=== PATIENT | male | born 1955 | race African-American/Black ===

== ENCOUNTER 2016-12-24 16:41 | Emergency (ER) | payer MEDICARE ==
[2014-05-21 00:40] VITALS: BMI 30.9
[~2016-12-24 16:41] MED LIST: CELLCEPT500 MG PO; COMBIVENT RESPIM4 GM INH; HUMALOG 30100 UNITS/ SC; HUMULIN R100 U/ML SC; HYDROCODONE-APA1 TAB PO; INSTA-GLUCOSE31 GM; INSTA-GLUCOSE31 GM PO; IPRAT-ALBUT 0.5-3 ML UPD; LANTUS SOL100 UNIT/1 SQ; MUCINEX600 MG PO; NEURONTIN600 MG PO; NORVASC5 MG PO; PROGRAF0.5 MG PO; PROTONIX40 MG PO; RESTORIL15 MG PO; VITAMIN B-12500 MCG PO
[2016-12-24 18:02] LABS: BASOPHILS 0.2 % (0.0-2.0); EOSINOPHILS 3.9 % (0-7); HEMOGLOBIN 15.2 g/dL (13.5-17.5); IMMATURE GRANULOCYTES 0.2 % (0-5); LYMPHOCYTES 21.9 % (15-50); MCH 30.3 pg (26.0-34.0); MCHC 33.8 g/dL (31.0-37.0); MCV 89.6 fL (80.0-100.0); MEAN PLATELET VOLUME 12.6 fL (7.4-10.4); MONOCYTES 7.8 % (2-11); PLATELET COUNT 173 10x3/uL (130-400); RBC 5.02 10x6/uL (4.20-6.10); RDW 12.8 % (11.5-14.5); WBC 6.5 10x3/uL (4.8-10.8)
[2016-12-24 18:40] LABS: ALBUMIN 3.3 g/dL (3.4-5.0); ANION GAP 13.9 mmol/L (8-16); BILIRUBIN - TOTAL 0.22 mg/dL (0.2-1.3); CALCIUM 9.1 mg/dL (8.5-10.1); CARBON DIOXIDE 26.8 mmol/L (21.0-32.0); CREATININE - SERUM 1.7 mg/dL (0.6-1.3); POTASSIUM - SERUM 4.7 mmol/L (3.5-5.1); PROTEIN - SERUM 6.8 g/dL (6.4-8.2)
[2016-12-24 18:42] LABS: URIC ACID 7.7 mg/dL (2.6-7.2)
== END 2016-12-24 19:26 | disposition home or self-care (01) ==
LOC: D.ER 16:41
PROVIDERS: Nurse Practitioner Family
DX: M79.601 Pain in right arm (principal); F17.200 Nicotine dependence, unspecified, uncomplicated; M48.32 Traumatic spondylopathy, cervical region; M54.12 Radiculopathy, cervical region; E11.9 Type 2 diabetes mellitus without complications; Z79.4 Long term (current) use of insulin; Z94.0 Kidney transplant status

== ENCOUNTER → 2017-01-28 08:21 | Outpatient (CLI) | payer MEDICARE ==
[2014-05-21 00:40] VITALS: BMI 30.9
--- NOTE | 2017-02-12 08:22 | EMG ---
PATIENT:FERNIE SO DATE OF SERVICE: 01/28/17 MEDICAL RECORD: [id number] DATE OF : 57 LOCATION: [facility] ADMISSION DATE: REFERRING PHYSICIAN: ZEV SARAH MD INTERPRETING PHYSICIAN: ANUPAM MARTINEZ MD DATE OF SERVICE: 01/28/2017 REFERRED BY: Zev Sarah MD. ELECTROMYOGRAPHIC DATA: Electromyographic examination is limited to both upper extremities. In the right upper extremity, right median motor stimulation elicits a compound motor action potential with a distal latency of 3.1 milliseconds, peak amplitude of 5 millivolts, and calculated conduction velocity of 51 meters per second. Right ulnar motor stimulation elicits a compound motor action potential with a distal latency of 2.6 milliseconds, peak amplitude of 9 millivolts, and calculated conduction velocity of 57 meters per second. Right ulnar motor stimulation across the elbow fails to elicit evidence of conduction block at this level. Antidromic right median sensory stimulation elicits a response with a distal latency of 3.2 milliseconds, amplitude of 6 microvolts and calculated conduction velocity of 58 meters per second. Antidromic right ulnar sensory stimulation elicits a response with a distal latency of 3.2 milliseconds, amplitude of 10 microvolts and calculated conduction velocity of 58 meters per second. The right median F wave has a latency of 28 milliseconds. In the left upper extremity, left median motor stimulation elicits a compound motor action potential with a distal latency of 3.7 milliseconds, peak amplitude of 7 millivolts, and calculated conduction velocity of 53 meters per second. Left ulnar motor stimulation elicits a compound motor action potential with a distal latency of 2.8 milliseconds, peak amplitude of 7 millivolts, and calculated conduction velocity of 55 meters per second. Left ulnar motor stimulation across the elbow fails to elicit evidence of conduction block at this level. Antidromic left median sensory stimulation elicits a response with a distal latency of 3.2 milliseconds, amplitude of 7 microvolts and calculated conduction velocity of 51 meters per second. Antidromic left ulnar sensory stimulation elicits a response with a distal latency of 4.5 milliseconds, amplitude of 5 microvolts and calculated conduction velocity of 57 meters per second. The left median F wave has a latency of 28 milliseconds. Needle electrode examination is limited to both upper extremities as well. Muscles interrogated include the abductor pollicis brevis, first dorsal interosseous, abductor digiti minimi, pronator teres, biceps brachii, triceps and deltoid. There is no abnormality of insertional activity and no abnormal spontaneous activity is seen in all muscles interrogated. Motor unit potential morphology and the pattern of motor unit potential firing and recruitment is normal in all muscles sampled. INTERPRETATION: Electromyographic examination of both upper extremities is normal. There is no electrical evidence of a cervical radiculopathy or other lesion of the lower motor neuron in the upper extremities at this time. There is no evidence of active denervation. TRANSINT:[id number] Voice Confirmation ID: [id number] DOCUMENT ID: [id number] ELECTROMYGRAM/NERVE CONDUCTION [id number] FERNIE SO DONALD P MD at 0822 CC: [id number] DICTATION DATE: 01/28/17928 SENIOR UNDERWRITING ASSISTANT: 01/28/172131 DEP CLI 01/28/17 [address] [place] [address]
== END | disposition home or self-care (01) ==
LOC: D.CN 08:21
DX: M79.601 Pain in right arm (principal)

== ENCOUNTER 2017-04-15 10:57 | Inpatient (IN) | payer MEDICARE ==
[~2017-04-15] VITALS: Ht 162.6 cm; Wt 86.1 kg
--- NOTE | ~2017-04-15 | HEMODYNAMI ---
PATIENT:FERNIE SO MEDICAL RECORD: [id number] : 57 [address] [id number] ADMISSION DATE: 04/15/17 Generatedon:04/16/201713:40 Patient name: FERNIE SO Patient #: [id number] : 1955 Date of study: 04/16/2017 Page: Of Hemodynamic Procedure Report Patient Data Patient Demographics Procedure consent was obtained First Name: FERNIE Gender: Male Last Name: UJDAH : 1955 Patient #: [id number] Age: 61 year(s) Race: Black SSN: [id number] Additional ID: [id number] Contact details Address: [address] [place] [address] State: [place] City: [place] Zip code: [address] Past Medical History Allergies Allergen Reaction Date Comments Reported Other allergy 04/16/2017 Acetametaphin, Ibuprofen, rosuvastatin, codeine, Phosphate Admission Admission Data Admission Date: 04/15/2017 Admission Time: 13:12 Arrival Date: 04/15/2017 Arrival Time: 13:12 Admit Source: Other Insurance Payor: Medicare, Room #: .[address] [place] [address] Height (in.): 64 BSA: 1.89 (m2) Height (cm.): 162.56 BMI: 31.75 (kg/m2) Weight (lbs.): 185 Weight (kg.): 83.91 Lab Results Lab Result Date: 04/16/2017 Lab Result Time: 0:00 Biochemistry Name Units Result Min Max BUN mg/dl 23 --(----)-* 7 18 Creatinine mg/dl 1.7 --(----)-* 0.6 1.3 CBC Name Units Result Min Max Hemoglobin g/dl 16.2 --(--*-)-- 13.5 17.5 Procedure Procedure Types Cath Procedure Diagnostic Procedure C LH w/Coronaries Miscellaneous Procedures Moderate Sedation up to 45 minutes Procedure Description Procedure Date Procedure Date: 04/16/2017 Procedure Start Time: 13:15 Procedure End Time: 13:35 Procedure Staff Name Function Ramiro Mejía MD Performing Physician Natalia Pemberton RT Scrub Annabel Sprague RN Nurse Mini Matias RT Monitor Procedure Data Cath Procedure Fluoroscopy Diagnostic fluoroscopy Total fluoroscopy Time: 6.2 time: 6.2 min min Diagnostic fluoroscopy Total fluoroscopy dose: 938 dose: 938 mGy mGy Contrast Material Contrast Material Type Amount (ml) Isovue 370 75 Entry Location Entry Primary Successful Side Size Upsize Upsize Entry Closure Succes sful Closure Location (Fr) 1 (Fr) 2 (Fr) Remarks Device Remarks Femoral Right 5 Fr Exoseal artery Estimated blood loss: 5 ml Diagnostic catheters Device Type Used For End Catheter Placement Cordis 5Fr JL 4.0 Left Coronary Catheter (MP) Angiography Cordis 5Fr 3DRC Catheter Right Coronary (MP) Angiography Diagnostic Infinity 5Fr Right Coronary JR 4 catheter Angiography Cordis 5Fr Pigtail LV Angiography Catheter (MP) Procedure Complications No complications Procedure Medications Medication Administration Route Dosage Oxygen NC 2 l/min Lidocaine 2% added to field 20 Heparin Flush Bag added to field 2 bags (1000units/500ml NS) 0.9% NaCl I.V. 100 ml/hr Versed I.V. 1 mg Fentanyl I.V. 50 mcg Versed I.V. 0.5 mg Fentanyl I.V. 25 mcg Hemodynamics Rest BSA: 1.89 (m2) HGB: 16.2 (g/dl) O2 Consumption: Estimated: 226.87 (ml/min) O2 Co nsumption indexed: Estimated:120.04 (ml/min/m) Heart Rate: 77 (bpm) Pressure Samples Time Site Value (mmHg) Purpose Heart Use Rate(bpm) 13:31 LV 118/-2,12 Snapshot 82 Gradients Valve Time Site Site Mean SEP/DFP Peak To Heart Use 1 2 (mmHg) (sec/min) Peak Rate (mmHg) (bpm) Aortic 13:32 LV AO 82 Snapshots Pre Cath Intra NCS Post Cath Vital Signs Time Heart Resp SPO2 NIBP (mmHg) Rhythm Pain Sedation Rate (ipm) (%) Status Level (bpm) 12:58:28 78 20 100 142/109(137) NSR 0 (11) 10(A) , No pain 13:02:44 80 17 95 144/104(113) NSR 0 (11) 10(A) , No pain 13:07:00 77 17 96 142/85(112) NSR 0 (11) 10(A) , No pain 13:11:18 77 16 94 128/87(117) NSR 0 (11) 9(A) , No pain 13:15:28 78 19 97 148/92(126) NSR 0 (11) 9(A) , No pain 13:19:40 79 21 95 140/96(120) NSR 0 (11) 9(A) , No pain 13:23:48 81 18 96 136/95(124) NSR 0 (11) 9(A) , No pain 13:27:58 83 18 96 147/89(116) NSR 0 (11) 9(A) , No pain 13:32:13 82 14 94 139/84(105) NSR 0 (11) 10(A) , No pain Medications Time Medication Route Dose Verified Delivered Reason Notes Effec tiveness by by 13:02:25 Oxygen NC 2 Ramiro Buffie used for l/min [facility] Andrew Sprague RN procedure 13:02:32 Lidocaine 2% added 20ml Ramiro Buffie used for to vial [facility] Andrew Sprague RN procedure field [place] 13:02:39 Heparin Flush added 2 Ramiro Buffie used for Bag to bags [facility] Andrew Sprague RN procedure (1000units/500ml field [place] NS) 13:06:16 0.9% NaCl I.V. 100 Ramiro Buffie Per ml/hr [facility] Andrew Sprague RN physician 13:06:31 Versed I.V. 1 mg Ramiro Buffie for [facility] Andrew Sprague RN sedation 13:06:37 Fentanyl I.V. 50 Ramiro Buff[address] for mcg [facility] Andrew Sprague RN sedation 13:20:10 Versed I.V. 0.5 Ramiro Buff[address] for mg [facility] Andrew Sprague RN sedation 13:20:14 Fentanyl I.V. 25 Ramiro Buffie for mcg [facility] Andrew Sprague RN sedation Procedure Log Time Note 12:21:06 Informed consent obtained and on chart 12:21:17 Admit Source: Other 12:21:24 Arrival Date: 04/15/2017 1:12:00 PM 12:21:42 Insurance Payor : Medicare, [facility] 12:22:44 Lab Result : Hemoglobin 16.2 g/dl 12::44 Lab Result : Creatinine 1.7 mg/dl 12::44 Lab Result : BUN 23 mg/dl 12:24:28 Annabel Sprague RN sent for patient. Start room use. 12::29 Time tracking: Regular hours 12:24:33 Plan of Care:Hemodynamics will remain stable., Cardiac rhythm will remain stable., Comfort level will be maintained., Respiratory function will remain adequate., Patient/ family verbilizes understanding of procedure., Procedure tolerated without complication., Recovers from procedure without complications.. 12:45:55 Patient received from Med II to CCL 2 Alert and oriented. Tansferred to table in Supine position. 12:45:56 Warm blankets applied, and micheal hugger turned on for patient comfort. 12:45:56 Correct patient and procedure confirmed by team. 12:46:01 ECG and BP/O2 sat monitors applied to patient. 12:57:17 Vital chart was started 12:57:18 Baseline sample Acquired. 12:57:23 Rhythm: sinus rhythm 12:57:24 Full Disclosure recording started 12:57:29 H&P Date Dictated: 04/16/2017 New H&P dictated by physician.. 12:57:31 Pre-op teaching completed and patient verbalized understanding. 12:57:32 Pre-procedure instructions explained to patient. 12:57:37 Family in waiting room. 12:57:38 Patient NPO since Midnight. 12:58:13 Patient allergic to Other allergyAcetametaphin, Ibuprofen, rosuvastatin, codeine, Phosphate 12:58:22 Is the patient allergic to Iodine/contrast media? No. 12:58:24 Was the patient premedicated? No 12:59:34 Is patient on blood thinner?No 12:59:35 Patient diabetic? Yes. 12:59:37 If diabetic: On Metformin? No 12:59:40 Previous problem with sedation/anesthesia? No ? 12:59:42 Snore? Yes 12:59:42 Sleep apnea? Yes 12:59:44 Deviated septum? No 12:59:44 Opens mouth fully? Yes 12:59:45 Sticks out tongue? Yes 12:59:55 Airway obstruction? Yes copd 12:59:58 Dentures? Yes in tight 13:00:03 Pre procedure: right dorsailis pedis pulse 1+ Palpable, but thready & weak; easily obliterated 13:00:05 Patient pain scale 0/10 ?. 13:00:13 IV patent on arrival in right antecubital with 0.9% NaCl at [facility]. 13:00:17 Lab results completed and on chart. 13:00:25 Right groin area was prepped with chlora-prep and draped in sterile fashion 13:00:26 Alarms reviewed by R. N. 13:00:27 Sharps counted by scrub and verified by R.N. 13:00:46 Physician arrived 13:00:46 --------ALL STOP TIME OUT------ 13:00:47 Final Timeout: patient, procedure, and site verified with staff and physician. All members of the team are in agreement. 13:00:49 Right groin site verified by team. 13:00:52 Physical assessment completed. ASA score P 3 - A patient with severe systemic disease as per Ramiro Mejía MD. 13:00:56 Sedation plan: IV Moderate Sedation Versed, Fentanyl 13:01:05 Use device set Femoral Dx 13:01:06 Acist Syringe opened to sterile field. 13:01:06 Bag Decanter opened to sterile field. 13:01:07 Medline Cath Pack opened to sterile field. 13:01:08 Terumo 5Fr [place] Sheath opened to sterile field. 13:01:08 St Charanjit 260cm J .035 wire opened to sterile field. 13:01:10 Acist Hand Control opened to sterile field. 13:01:10 Acist Manifold opened to sterile field. 13:01:11 Diagnostic Infinity 5Fr Multipack catheter opened to sterile field. 13:01:12 Tegaderm 4 x 4 opened to sterile field. 13:02:25 Oxygen 2 l/min NC was administered by Annabel Sprague RN; used for procedure; 13:02:32 Lidocaine 2% 20ml vial added to field was administered by Annabel Sprague RN; used for procedure; 13:02:39 Heparin Flush Bag (1000units/500ml NS) 2 bags added to field was administered by Annabel Sprague RN; used for procedure; 13:06:16 0.9% NaCl 100 ml/hr I.V. was administered by Annabel Sprague RN; Per physician; 13:06:31 Versed 1 mg I.V. was administered by Annabel Sprague RN; for sedation; 13:06:37 Fentanyl 50 mcg I.V. was administered by Annabel Sprague RN; for sedation; 13:06:37 Zero performed for pressure channel P1 13:15:25 Procedure started. 13:15:35 Local anesthetic to right femoral artery with Lidocaine 2% by Ramiro Mejía MD.INITIAL ACCESS ONLY 13:15:42 A 5 Fr sheath was inserted into the Right Femoral artery 13:16:50 A Cordis 5Fr JL 4.0 Catheter (MP) was advanced over the wire and used for Left Coronary Angiography. 13:18:33 LCA angiography performed. 13:18:36 Injector settings: Ml/sec: 3, Volume: 6, 13:19:53 Catheter removed. 13:19:59 A Cordis 5Fr 3DRC Catheter (MP) was advanced over the wire and used for Right Coronary Angiography. 13:20:10 Versed 0.5 mg I.V. was administered by Annabel Sprague RN; for sedation; 13:20:14 Fentanyl 25 mcg I.V. was administered by Annabel Sprague RN; for sedation; 13:23:38 Wire removed. damaged. 13:23:43 St Charanjit 260cm J .035 wire opened to sterile field. 13:27:06 A Diagnostic Infinity 5Fr JR 4 catheter was advanced over the wire and used for Right Coronary Angiography. 13:28:02 RCA angiography performed. 13:28:06 Injector settings: Ml/sec: 3, Volume: 6, 13:29:04 Catheter removed. 13:29:15 A Cordis 5Fr Pigtail Catheter (MP) was advanced over the wire and used for LV Angiography. 13:32:13 LV hemodynamics recorded. 13:32:18 EF : 60 % 13:32:20 LV gram done using ANTHONY 13:32:23 Injector settings: Ml/sec: 5, Volume: 15, 13:32:24 Catheter removed. 13:33:27 Cordis 5Fr Exoseal opened to sterile field. 13:33:45 Sheath removed intact; hemostasis achieved with Exoseal to the Right Femoral artery. 13:33:48 Procedure ended.(Physican Out) 13:33:58 Fluoroscopy time 06.20 minutes. 13:34:13 Fluoroscopy dose: 938 mGy 13:34:13 Flurop Dose total: 938 13:34:17 Contrast amount:Isovue 370 75ml. 13:34:23 Sharps counted by scrub and verified by R.N. 13:34:24 Insertion/operative site no bleeding no hematoma. 13:34:27 Post-op/insertion site Right Femoral artery dressed using a 4 x 4 and Tegaderm. 13:34:30 Post right femoral artery:stable 13:34:35 Post procedure rhythm: unchanged. 13:34:38 Estimated blood loss: 5 ml 13:34:39 Post procedure instruction explained to patient.Patient verbalizes understanding. 13:34:40 Patient needs reinforcement of post procedure teaching. 13:34:54 Procedure type changed to Cath procedure, Diagnostic procedure, LHC, LHC w/Coronaries, Miscellaneous Procedures, Moderate Sedation up to 45 minutes 13:35:07 Procedure and supply charges have been captured, reviewed, submitted and are correct. 13:35:12 Procedure Complication : No complications 13:35:13 Vital chart was stopped 13:35:14 See physician's report for complete and final results. 13:35:15 Report given to [facility]. 13:35:26 Patient transfered to [facility] with Stretcher. 13:35:30 Procedure ended. 13:35:30 Full Disclosure recording stopped 13:36:00 End room use (Document Last) 13:36:44 Patient Height : 162.56 cm 13:36:49 Patient Weight : 83.91 kg Device Usage Item Name Manufacture Quantity Catalog Hospital Part Current Minimal Lo t# / Number Charge Number Stock Stock Serial# Code Acist Acist 1 92852 525039 123833 [id number] 20 Syringe Medical [employer] Inc Bag Microtek 1 2002S 405397 37006 805365 5 Decanter Medical Inc. Medline Cardinal 1 [id number] 954610 92872 905963 5 Cath Pack [employer] Terumo 5Fr Terumo 1 OBU941 877518 234028 127306 [address] [place] [address] Charanjit 2 062341 382745 299788 822163 30 260cm J .035 wire Acist Hand Acist 1 00318 663091 060615 985679 5 Control Medical Systems Inc Acist Acist 1 80239 131282 222961 401958 5 Manifold Medical Systems Inc Diagnostic Cardinal 1 [id number] 338768 85554 935434 30 Shadow Networksity Health 5Fr Multipack catheter Tegaderm 4 3M 1 1626W 289918 598670 236743 5 x 4 Cordis 5Fr Cardinal 1 013306 5 JL 4.0 Health Catheter (MP) Cordis 5Fr Cardinal 1 804891 5 3DRC Health Catheter (MP) Diagnostic Cardinal 1 [id number] 597213 496120 623635 5 Infinity Health 5Fr JR 4 catheter Cordis 5Fr Cardinal 1 920464 5 Pigtail Health Catheter (MP) Cordis 5Fr Cardinal 1 EX500 014569 804445 846386 10 [place] Signature Audit [place] Stage Time Signature Unsigned Intra-Procedure 04/16/2017 Mini Matias 1:40:24 PM RT(R) Signatures Monitor : Mini Matias RT Signature : Date : Time : [address] [place] [address]
[2017-04-15 11:26] LABS: BASOPHILS 0.2 % (0-2); EOSINOPHILS 3.2 % (0-7); HEMATOCRIT 47.5 % (42.0-54.0); IMMATURE GRANULOCYTES 0.4 % (0-5); LYMPHOCYTES 16.6 % (15-50); MCHC 33.7 g/dL (31.0-37.0); MEAN PLATELET VOLUME 11.8 fL (7.4-10.4); MONOCYTES 9.7 % (2-11); NEUTROPHILS 69.9 % (40-80); PLATELET COUNT 150 10x3/uL (130-400); RBC 5.34 10x6/uL (4.20-6.10); RDW 12.6 % (11.5-14.5); WBC 5.7 10x3/uL (4.8-10.8)
[2017-04-15 11:40] LABS: ALBUMIN 3.2 g/dL (3.4-5.0); ALKALINE PHOSPHATASE 113 U/L (46-116); ALT (SGPT) 34 U/L (10-68); BILIRUBIN - TOTAL 0.49 mg/dL (0.2-1.3); CALC OSMOLALITY 282 mosm/kg (275-300); CALCIUM 9.2 mg/dL (8.5-10.1); CARBON DIOXIDE 27.9 mmol/L (21.0-32.0); CHLORIDE - SERUM 102 mmol/L (98-107); CREATININE - SERUM 1.6 mg/dL (0.6-1.3); POTASSIUM - SERUM 4.9 mmol/L (3.5-5.1); PROTEIN - SERUM 7.4 g/dL (6.4-8.2); SODIUM 137 mmol/L (136-145); UREA NITROGEN 20 mg/dL (7-18); eGFR NON AFRICAN AMERICAN 47 mL/min (90-120)
[2017-04-15 11:44] LABS: GLUCOSE 211 mg/dL (74-106)
[2017-04-15 11:52] LABS: CHOL - HDL RATIO 2.8 ratio (2.3-4.9); CHOLESTEROL, TOTAL 163 mg/dL (0-200); CKMB 1.8 U/L (0.0-3.6); CREATINE KINASE 143 UL (21-232); HDL CHOLESTEROL 58 mg/dL (32-96); LDL CHOLESTEROL 83 mg/dL (0-100); LDL-HDL RATIO 1.4 ratio (1.5-3.5); TRIGLYCERIDE 114 mg/dL (30-200)
[2017-04-15 11:53] LABS: TROPONIN-I < 0.017 ng/mL (0.000-0.060)
--- NOTE | 2017-04-15 17:27 | NUR ---
TRANSFER FROM ER BY STRETCHER. OREINTED TO ROOM. CALL LIGHT IN REACH. WILL CONT. PLAN OF CARE.
[2017-04-15 17:50] VITALS: BP 157/94
[2017-04-15] MEDS ORDERED: LANTUS INSULIN10 ML SC (17:52)
[2017-04-15] MEDS ORDERED: TACROLIMUS ANHYD1 MG PO (17:53)
[2017-04-15] MEDS ORDERED: HYDROCODON-ACE1 EAC7 PO (17:53)
[2017-04-15] MEDS ORDERED: CELLCEPT500 MG PO (17:54)
[2017-04-15] MEDS ORDERED: NEURONTIN600 MG PO (17:54)
[2017-04-15] MEDS ORDERED: NORVASC5 MG PO (17:55)
[2017-04-15] MEDS ORDERED: PROTONIX40 MG PO (17:55)
[2017-04-15 18:15] VITALS: BP 157/94; BMI 32.7
[2017-04-15 21:07] VITALS: BP 158/95
[2017-04-16 01:38] VITALS: BP 143/82
[2017-04-16 04:38] LABS: BASOPHILS 0 % (0-2); EOSINOPHILS 4.1 % (0-7); HEMATOCRIT 48.4 % (42.0-54.0); HEMOGLOBIN 16.2 g/dL (13.5-17.5); IMMATURE GRANULOCYTES 0.3 % (0-5); LYMPHOCYTES 23.3 % (15-50); MCH 30.3 pg (26.0-34.0); MCHC 33.5 g/dL (31.0-37.0); MCV 90.5 fL (80.0-100.0); MEAN PLATELET VOLUME 12.6 fL (7.4-10.4); MONOCYTES 8.9 % (2-11); NEUTROPHILS 63.4 % (40-80); PLATELET COUNT 179 10x3/uL (130-400); RBC 5.35 10x6/uL (4.20-6.10); RDW 12.7 % (11.5-14.5)
[2017-04-16 05:32] VITALS: BP 140/86
[2017-04-16 05:33] LABS: CARBON DIOXIDE 29.6 mmol/L (21.0-32.0); CHLORIDE - SERUM 102 mmol/L (98-107); CREATININE - SERUM 1.7 mg/dL (0.6-1.3); POTASSIUM - SERUM 5.3 mmol/L (3.5-5.1); SODIUM 138 mmol/L (136-145); UREA NITROGEN 23 mg/dL (7-18); eGFR NON AFRICAN AMERICAN 44 mL/min (90-120)
[2017-04-16 05:38] LABS: CALC OSMOLALITY 282 mosm/kg (275-300); GLUCOSE 147 mg/dL (74-106); TROPONIN-I < 0.017 ng/mL (0.000-0.060)
[2017-04-16 08:00] VITALS: BP 146/82
[2017-04-16 12:00] VITALS: BP 143/86
--- NOTE | 2017-04-16 12:43 | NUR ---
PRE-OPS GIVEN. TO APPEALS WRITER BY BED.
--- NOTE | 2017-04-16 14:01 | NUR ---
BACK FROM DRAINAGE INSPECTOR. VS WNL. RIGHT GROIN STABLE WITHOUT BLEEDING OR HEMATOMA NOTED. WILL MONITOR.
[2017-04-16 15:26] VITALS: Ht 162.6 cm; Wt 86.1 kg
[2017-04-16 15:59] VITALS: BP 149/95
--- NOTE | 2017-04-16 16:03 | NUR ---
BED REST UP. GROIN STABLE.
--- NOTE | 2017-04-16 19:56 | NUR ---
RESUMED CARE OF PT, LYING IN BED RESPIRATIONS EVEN AND UNLABORED ON ROOM AIR. RIGHT HAND INFUSING NS @ 50. 81 SR ON TELEMETRY. RIGHT GROIN C/D/I, PEDAL PULSE PALPABLE. CALL LIGHT IN REACH. WILL CONTINUE OT MONITOR. SEE NURSE ASSESSMENT.
[2017-04-16 20:44] VITALS: BP 143/82
[2017-04-17 03:47] VITALS: BP 125/76
[2017-04-17 05:40] LABS: BASOPHILS 0.1 % (0-2); EOSINOPHILS 0.3 % (0-7); HEMATOCRIT 46.1 % (42.0-54.0); HEMOGLOBIN 15.2 g/dL (13.5-17.5); IMMATURE GRANULOCYTES 0.7 % (0-5); LYMPHOCYTES 8.2 % (15-50); MCH 29.9 pg (26.0-34.0); MCV 90.7 fL (80.0-100.0); MEAN PLATELET VOLUME 12.4 fL (7.4-10.4); MONOCYTES 4.5 % (2-11); NEUTROPHILS 86.2 % (40-80); PLATELET COUNT 167 10x3/uL (130-400); RBC 5.08 10x6/uL (4.20-6.10); RDW 12.5 % (11.5-14.5); WBC 7.3 10x3/uL (4.8-10.8)
[2017-04-17 06:28] LABS: ALBUMIN 2.7 g/dL (3.4-5.0); ANION GAP 13.8 mmol/L (8-16); BILIRUBIN - TOTAL 0.3 mg/dL (0.2-1.3); CALCIUM 8.3 mg/dL (8.5-10.1); CARBON DIOXIDE 24.4 mmol/L (21.0-32.0); CREATININE - SERUM 1.8 mg/dL (0.6-1.3); MAGNESIUM - SERUM 1.3 mg/dL (1.8-2.4); PHOSPHOROUS 3.8 mg/dL (2.5-4.9); POTASSIUM - SERUM 5.2 mmol/L (3.5-5.1); PROTEIN - SERUM 6.6 g/dL (6.4-8.2)
--- NOTE | 2017-04-17 07:58 | OP ---
PATIENT NAME: FERNIE SO MEDICAL RECORD: [id number] :57 LOCATION:D.M2 D.2120 ADMISSION DATE:04/15/17 SURGEON: AMITA SHARMA MD DATE OF OPERATION: 04/16/2017 PROCEDURES: Left heart catheterization, selective coronary angiography, right femoral artery approach. CATHETERS: A 5-Faroese sheath, 5/4 left and right Jerman, 5/4 pig. The procedure was well tolerated and the patient returned to bruner. Sheath removed. ExoSeal device was placed. FINDINGS: Left ventriculography in 30-degree ANTHONY view: Normal wall motion, normal systolic function. CORONARY ANATOMY: Left main: Left main is free of disease. LAD: LAD has no significant plaquing, some bridging is noted in the mid portion of the LAD consistent with LVH. CIRCUMFLEX: Circumflex is free of disease. RIGHT CORONARY ARTERY: Shows luminal wall disease with no significant stenosis. IMPRESSION: Minimal wall disease, no significant stenosis. Normal LV function. TRANSINT:[id number] Voice Confirmation ID: [id number] DOCUMENT ID: [id number] AMITA SHARMA MD at 0758 CC: [id number] DICTATION DATE: 04/16/17 1343 RESTAURANT FLOOR MANAGER: 04/17/17 0034 ADM IN [facility] [address] [place] [address]
[2017-04-17 08:41] VITALS: BP 151/77
--- NOTE | 2017-04-17 10:42 | NUR ---
FSBS 54. 1/2 AMP DEXTROSE GIVEN. WILL MONITOR.
[2017-04-17 12:54] VITALS: BP 154/76
[2017-04-17 16:20] VITALS: BP 146/74
[2017-04-17 19:00] VITALS: BP 150/82
[2017-04-18] VITALS: BP 166/80
[2017-04-18 04:00] VITALS: BP 148/75
[2017-04-18 06:09] LABS: ANION GAP 12.4 mmol/L (8-16); CALCIUM 8.6 mg/dL (8.5-10.1); CREATININE - SERUM 1.6 mg/dL (0.6-1.3)
[2017-04-18 06:16] LABS: HEMATOCRIT 44.6 % (42.0-54.0); HEMOGLOBIN 14.9 g/dL (13.5-17.5); LYMPHOCYTES 14.5 % (15-50); MCH 29.3 pg (26.0-34.0); MCHC 33.4 g/dL (31.0-37.0); MEAN PLATELET VOLUME 11.5 fL (7.4-10.4); NEUTROPHILS 73.8 % (40-80); PLATELET COUNT 149 10x3/uL (130-400); POTASSIUM - SERUM 4.4 mmol/L (3.5-5.1); RBC 5.08 10x6/uL (4.20-6.10); RDW 12.6 % (11.5-14.5); WBC 6.2 10x3/uL (4.8-10.8)
[2017-04-18 06:17] LABS: MCV 87.8 fL (80.0-100.0)
--- NOTE | 2017-04-18 06:20 | NUR ---
PT SOMNOLENT. GLUCOSE ON LABS THIS AM RESULTS 50. 1/2 AMP D50 GIVEN. WILL MONITOR
[2017-04-18 08:12] VITALS: BP 150/88
[2017-04-18 12:14] VITALS: BP 164/92
[2017-04-18 15:43] VITALS: BP 161/88
[2017-04-18 20:00] VITALS: BP 162/79
--- NOTE | 2017-04-18 21:33 | NUR ---
PT REFUSES BRINDA DEVI. STATES HE HAS BEEN HYPOGLYCEMIC LATELY. GLUCOSE 128 VIA ACCU-CHECK. WILL COMPLY WITH PT'S REQUEST. PT ALSO C/O PAIN TO CHEST AND BACK. BUPRENEX 0.15 IV GIVEN WITH ZOFRAN 4 MG IV. PT STATES BREATHING TREATMENT HAS MADE HIM NAUSEATED. WILL CONT TO MONITOR.
[2017-04-19] VITALS: BP 156/86
[2017-04-19 04:00] VITALS: BP 145/75
[2017-04-19 05:37] LABS: BASOPHILS 0.2 % (0-2); EOSINOPHILS 2.5 % (0-7); HEMOGLOBIN 14.9 g/dL (13.5-17.5); IMMATURE GRANULOCYTES 0.5 % (0-5); LYMPHOCYTES 20.4 % (15-50); MCH 29.9 pg (26.0-34.0); MCHC 33.1 g/dL (31.0-37.0); MEAN PLATELET VOLUME 11.8 fL (7.4-10.4); MONOCYTES 11.1 % (2-11); NEUTROPHILS 65.3 % (40-80); PLATELET COUNT 166 10x3/uL (130-400); RBC 4.99 10x6/uL (4.20-6.10); RDW 12.7 % (11.5-14.5); WBC 5.6 10x3/uL (4.8-10.8)
[2017-04-19 05:38] LABS: MCV 90.2 fL (80.0-100.0)
[2017-04-19 06:03] LABS: ANION GAP 10.7 mmol/L (8-16); CALCIUM 8.8 mg/dL (8.5-10.1); CREATININE - SERUM 1.6 mg/dL (0.6-1.3); POTASSIUM - SERUM 4.7 mmol/L (3.5-5.1)
--- NOTE | 2017-04-19 07:56 | NUR ---
ASSESSMENT DONE DENIES NEEDS.
[2017-04-19 08:00] VITALS: BP 143/71
--- NOTE | 2017-04-19 08:16 | NUR ---
RESTS IN BED WITH CALL LIGHT IN REACH. WILL MONITOR NEEDS.
[2017-04-19] MEDS ORDERED: CARAFATE1 G PO (10:30)
[2017-04-19] MEDS ORDERED: OMEPRAZOLE20 M1 PO (10:31)
--- NOTE | 2017-04-19 10:38 | DS ---
PATIENT:FERNIE SO :57 MEDICAL RECORD: [id number] DISCHARGE SUMMARY ADMISSION DATE: 04/17/17 DISCHARGE DATE: PROBLEM LIST: 1. Chest pain. 2. Diabetes mellitus. 3. Chronic renal insufficiency, status post transplantation. 4. Hypertension. BRIEF HISTORY AND HOSPITAL COURSE: Admitted with acute coronary syndrome underwent diagnostic angiography. This showed no evidence of obstructive coronary artery disease, normal LV function, was seen by renal preoperatively, discharged home in good condition. Follow up will be at renal at their discretion. I will see him back as needed. MEDICATIONS: Including ____ medications the same. TRANSINT:[id number] Voice Confirmation ID: [id number] DOCUMENT ID: [id number] AMTIA SHARMA MD at 1038 CC: [id number] DICTATION DATE: 04/18/17817 STRUCTURAL IRON ERECTOR: 04/19/17 0509 ADM IN [facility] [address] [id number]
[2017-04-19 12:00] VITALS: BP 139/77
--- NOTE | 2017-04-19 15:33 | NUR ---
DC GIVEN TO PT
--- NOTE | 2017-04-19 15:50 | NUR ---
DC HOME PER PERSONAL CAR
== END 2017-04-19 15:51 | disposition home or self-care (01) | DRG 287 ==
LOC: D.ER 10:57 → D.M2 13:12 → OBSVTIME 13:12 → D.M2 04-17 14:29
PROVIDERS: Emergency Medicine; Internal Medicine; ADMIT Internal Medicine Interventional Cardiology
PROC: B2151ZZ Fluoroscopy of Left Heart using Low Osmolar Contrast (ICD-10-PCS; principal; 2017-04-16 08:30)
PROC: 4A023N7 Measurement of Cardiac Sampling and Pressure, Left Heart, Percutaneous Approach (ICD-10-PCS; principal; 2017-04-16 08:30)
PROC: B2111ZZ Fluoroscopy of Multiple Coronary Arteries using Low Osmolar Contrast (ICD-10-PCS; principal; 2017-04-16 08:30)
DX: R07.9 Chest pain, unspecified (principal); I13.0 Hypertensive heart and chronic kidney disease with heart failure and stage 1 through stage 4 chronic kidney disease, or unspecified chronic kidney disease; Z94.0 Kidney transplant status; I25.10 Atherosclerotic heart disease of native coronary artery without angina pectoris; R10.12 Left upper quadrant pain; E11.22 Type 2 diabetes mellitus with diabetic chronic kidney disease; N18.3 Chronic kidney disease, stage 3 (moderate); I50.9 Heart failure, unspecified; E11.40 Type 2 diabetes mellitus with diabetic neuropathy, unspecified; K59.00 Constipation, unspecified; K82.9 Disease of gallbladder, unspecified

== ENCOUNTER → 2017-05-01 08:35 | Outpatient (CLI) | payer MEDICARE ==
[2017-04-16 15:26] VITALS: BMI 32.8
[~2017-05-01 08:35] MED LIST changes: +CARAFATE1 G PO; +HYDROCODON-ACE1 EAC7 PO; +LANTUS INSULIN10 ML SC; +OMEPRAZOLE20 M1 PO; +TACROLIMUS ANHYD1 MG PO
== END | disposition home or self-care (01) ==
LOC: D.RAD 08:35
DX: E11.21 Type 2 diabetes mellitus with diabetic nephropathy (principal); G95.0 Syringomyelia and syringobulbia; Z94.0 Kidney transplant status; Z68.32 Body mass index [BMI] 32.0-32.9, adult; J20.9 Acute bronchitis, unspecified; J01.90 Acute sinusitis, unspecified

== ENCOUNTER 2017-10-08 10:39 | Inpatient (IN) | payer MEDICARE, BC ==
[~2017-10-08] VITALS: Ht 162.6 cm; Wt 83.9 kg
[2017-10-08 11:11] LABS: BASOPHILS 0 % (0-2); EOSINOPHILS 0.8 % (0-7); HEMATOCRIT 44.3 % (42.0-54.0); HEMOGLOBIN 15.2 g/dL (13.5-17.5); IMMATURE GRANULOCYTES 0.3 % (0-5); LYMPHOCYTES 23.1 % (15-50); MCH 29.5 pg (26.0-34.0); MCHC 34.3 g/dL (31.0-37.0); MEAN PLATELET VOLUME 13.1 fL (7.4-10.4); NEUTROPHILS 69.8 % (40-80); PLATELET COUNT 168 10x3/uL (130-400); RBC 5.15 10x6/uL (4.20-6.10); RDW 12.9 % (11.5-14.5); WBC 3.6 10x3/uL (4.8-10.8)
[2017-10-08 11:28] LABS: ALBUMIN 3.1 g/dL (3.4-5.0); ALKALINE PHOSPHATASE 139 U/L (46-116); ALT (SGPT) 17 U/L (10-68); BILIRUBIN - TOTAL 0.67 mg/dL (0.2-1.3); CALC OSMOLALITY 286 mosm/kg (275-300); CARBON DIOXIDE 21.1 mmol/L (21.0-32.0); CHLORIDE - SERUM 106 mmol/L (98-107); CREATININE - SERUM 2.1 mg/dL (0.6-1.3); GLUCOSE 227 mg/dL (74-106); PROTEIN - SERUM 6.9 g/dL (6.4-8.2); SODIUM 136 mmol/L (136-145); UREA NITROGEN 35 mg/dL (7-18); eGFR NON AFRICAN AMERICAN 34 mL/min (90-120)
[2017-10-08 11:40] LABS: CHOL - HDL RATIO 3.2 ratio (2.3-4.9); CHOLESTEROL, TOTAL 122 mg/dL (0-200); CKMB 2.1 U/L (0.0-3.6); CREATINE KINASE 199 UL (21-232); HDL CHOLESTEROL 38 mg/dL (32-96); LDL CHOLESTEROL 65 mg/dL (0-100); LDL-HDL RATIO 1.7 ratio (1.5-3.5); TRIGLYCERIDE 98 mg/dL (30-200); TROPONIN-I < 0.017 ng/mL (0.000-0.060)
[2017-10-08 19:17] LABS: CKMB 1.3 U/L (0.0-3.6); CREATINE KINASE 104 UL (21-232); TROPONIN-I 0.043 ng/mL (0.000-0.060)
--- NOTE | 2017-10-08 20:00 | NUR ---
PT RECEIVED TO UNIT AT 1950 ABLE TO AMBULATE TO BED WITH HOSPITAL STAFF. PT FELL ASLEEP QUICKLY AND WAS EASILY AROUSED. PT ON TELEMETRY. NO S/S OF DISTRESS. COMPLAINS OF GENERALIZED PAIN WITH DR. SHAFER WITH NO ORDERS AT THIS TIME. WILL CONTINUE TO OBSERVE. CALL LIGHT IN REACH.
[2017-10-09] VITALS: BP 172/94
[2017-10-09 01:20] LABS: CREATINE KINASE 114 UL (21-232); TROPONIN-I 0.044 ng/mL (0.000-0.060)
--- NOTE | 2017-10-09 03:52 | NUR ---
PT IN BED WITH EYES CLOSED AND CHEST RISING. EASILY AROUSED TO VERBAL STIMULI. NO CONCERNS NOTED AT THIS TIME. WILL CONTINUE TO OBSERVE. CALL LIGHT IN REACH.
[2017-10-09 06:20] LABS: BASOPHILS 0.2 % (0-2); EOSINOPHILS 3.5 % (0-7); HEMATOCRIT 43.8 % (42.0-54.0); HEMOGLOBIN 14.7 g/dL (13.5-17.5); IMMATURE GRANULOCYTES 0.2 % (0-5); LYMPHOCYTES 21.6 % (15-50); MCH 29.2 pg (26.0-34.0); MCHC 33.6 g/dL (31.0-37.0); MCV 87.1 fL (80.0-100.0); MEAN PLATELET VOLUME 12.1 fL (7.4-10.4); NEUTROPHILS 59.5 % (40-80); PLATELET COUNT 156 10x3/uL (130-400); RBC 5.03 10x6/uL (4.20-6.10); RDW 13.1 % (11.5-14.5)
[2017-10-09 06:29] LABS: WBC 5.8 10x3/uL (4.8-10.8)
[2017-10-09 06:47] LABS: CALC OSMOLALITY 289 mosm/kg (275-300); CALCIUM 8.8 mg/dL (8.5-10.1); CARBON DIOXIDE 25.7 mmol/L (21.0-32.0); CHLORIDE - SERUM 108 mmol/L (98-107); CREATINE KINASE 107 UL (21-232); CREATININE - SERUM 2.5 mg/dL (0.6-1.3); POTASSIUM - SERUM 4.9 mmol/L (3.5-5.1); SODIUM 141 mmol/L (136-145); TROPONIN-I 0.029 ng/mL (0.000-0.060); UREA NITROGEN 35 mg/dL (7-18); eGFR NON AFRICAN AMERICAN 28 mL/min (90-120)
[2017-10-09 06:48] LABS: GLUCOSE 113 mg/dL (74-106)
--- NOTE | 2017-10-09 07:23 | NUR ---
AM ROUNDS- PT IN BED, WITH EYES CLOSE, AROUSES EASILY TO VOICE. RESP EVEN AND UNLABORED. RT HAND IV SL. PT CONCERN ABOUT HIS ANTIREJECTION MEDS. INFOMRED PT THAT I WOULD CALL DOCTOR TO HAVE THEM RESTARTED. PT DENIES ANY OTHER NEEDS AT THIS TIME. BED LOW AND WHEELS LOCKED, BEDSIDE RAILS X2, CALL LIGHT IN REACH, NAD NOTED, WILL CONTINUE PLAN OF CARE.
[2017-10-09 08:30] VITALS: BP 178/87
--- NOTE | 2017-10-09 08:47 | NUR ---
PAGED ASHLEY WEIR, WAITING VOCATIONAL TRAINING INSTRUCTOR BACK.
--- NOTE | 2017-10-09 09:20 | NUR ---
RECEIVED CALL BACK FROM ASHLEY WEIR. INFORMED HER THAT PT WAS CONCERN ABOUT NOT HAVING HIS ANTIREJECTION MEDS IN TWO DAY. ASKED ASHLEY IF MEDS COULD BE STARTED. ASHLEY WEIR STATED THAT IT WAS OKAY WITH HER TO START MEDS BUT TO DOUBLE CHECK WITH RENAL TO MAKER SURE ITS OK WITH THEM, WILL CALL DANIELA SALINAS RENAL PRESS OPERATOR HELPER.
--- NOTE | 2017-10-09 09:26 | NUR ---
HOLLIS SALINAS RENAL BEVEL FACE STONER AND POLISHER. WAITING ON HER TO CALL BACK. PT CALL DR. SARAH'S OFFICE AND INFORMED DR. SARAH THAT HE HAS NOT TAKEN HIS ANTIREGECTION MEDS IN TWO DAYS. PT STATED THAT DR. SARAH TOLD HIM THAT HE COULD TAKE HIS OWN UNTIL HIS MEDS ARE RESTARTED HERE.
--- NOTE | 2017-10-09 09:30 | NUR ---
PT AMBULATING AROUND THE NURSES STATION, NAD NOTED.
[2017-10-09 11:37] VITALS: BP 146/70
[2017-10-09] MEDS ORDERED: MAVYRET PO (12:47)
--- NOTE | 2017-10-09 12:54 | NUR ---
ADMINISTERED 0.1MG OF BUPRENEX FOR PAIN LEVEL OF 9/10. ALSO ADMINISTRED 12.5MG OF BENADRYL. PT DENIES ANY NEEDS AT THIS TIME, CALL LIGHT IN REACH, NAD NOTED.
[2017-10-09 13:37] VITALS: Ht 162.6 cm; Wt 83.9 kg
[2017-10-09 15:34] VITALS: BP 173/81
--- NOTE | 2017-10-09 17:06 | NUR ---
BLOOD SUGAR OF173, 2UNITS OF HUMULIN R GIVEN PER S/S. PT UP TO SIDE OF BED EATING DINNER, DENIES ANY NEEDS AT THIS TIME. CALL LIGHT IN REACH, NAD NOTED.
[2017-10-09 20:00] VITALS: BP 159/95
--- NOTE | 2017-10-09 20:15 | NUR ---
AMBULATING IN PITTS AROUND NURSES STATION WITH , GAIT STEADY.
[2017-10-09] MEDS ORDERED: FLOMAX0.4 MG PO (20:48)
[2017-10-09] MEDS ORDERED: LISINOPRIL10 MG PO (20:48)
--- NOTE | 2017-10-09 21:01 | NUR ---
HS MEDS GIVEN WITH FRESH ICE WATER, BS 134, NO COVERAGE GIVEN PER S/S. RECLINER CHAIR TAKEN TO ROOM FOR PTS . NO OTHER NEEDS VOICED AT THIS TIME.
[2017-10-10] VITALS: BP 129/73
--- NOTE | 2017-10-10 02:04 | NUR ---
CALL LIGHT IN REACH, WILL CONTINUE WITH PLAN OF CARE. 71 SR ON TELEMETRY
[2017-10-10 04:00] VITALS: BP 139/70
[2017-10-10 06:28] LABS: BASOPHILS 0.2 % (0-2); EOSINOPHILS 4.2 % (0-7); HEMATOCRIT 44.9 % (42.0-54.0); IMMATURE GRANULOCYTES 0.3 % (0-5); LYMPHOCYTES 22.7 % (15-50); MCH 29.3 pg (26.0-34.0); MCHC 33.4 g/dL (31.0-37.0); MCV 87.7 fL (80.0-100.0); MEAN PLATELET VOLUME 12.6 fL (7.4-10.4); MONOCYTES 19.2 % (2-11); NEUTROPHILS 53.4 % (40-80); PLATELET COUNT 180 10x3/uL (130-400); RBC 5.12 10x6/uL (4.20-6.10); RDW 12.9 % (11.5-14.5); WBC 5.7 10x3/uL (4.8-10.8)
[2017-10-10 06:33] LABS: ANION GAP 12.8 mmol/L (8-16); CALCIUM 8.6 mg/dL (8.5-10.1); CARBON DIOXIDE 28.5 mmol/L (21.0-32.0); CREATININE - SERUM 2.3 mg/dL (0.6-1.3); POTASSIUM - SERUM 4.3 mmol/L (3.5-5.1)
[2017-10-10 08:21] VITALS: BP 100/59
--- NOTE | 2017-10-10 10:14 | NUR ---
TELEMETRY SR. UP AMBULATING HALLWAY ADLIB. GAIT STEADY. WILL CONT. PLAN OF CARE.
[2017-10-10 12:16] VITALS: BP 109/61
--- NOTE | 2017-10-10 14:14 | EC ---
PATIENT:FERNIE SO DATE OF SERVICE: 10/08/17 SEX: M MEDICAL RECORD: [id number] DATE OF : [birth year] LOCATION:D. D.212 AGE OF PATIENT: 62 ADMISSION DATE: 10/08/17 REFERRING PHYSICIAN: INTERPRETING PHYSICIAN: BECKY NICHLOS MD ECHOCARDIOGRAM REPORT ECHO CHARGES 4 ECHO COMPLETE CLINICAL DIAGNOSIS: CHF HX RENAL DISEASE ECHOCARDIOGRAPHIC MEASUREMENTS (adult normal given) AC root (d.<3.7cm) 3.8 cm LV Septum d (<1.2 cm> 1.8 cm Valve Excursion 2.1 cm LV Septum (systole) 2.4 cm Left Atria (s.<4.0cm> 3.0 cm LVPW d(<1.2cm) 1.7 cm RV (d.<2.3cm) 3.0 cm LVPW (sytole) 2.2 cm LV diastole(<5.6CM) 5.0 cm MV E-F(>70mm/sec) cm LV systole 3.3 cm LVOT Diameter 1.8 cm MV exc.(>10mm) 1.6 cm Est.ejection fraction (50-75%) % Pericardial Effusion N DOPPLER: LVIT cm/sec A 92.0 cm/sec E 68.0 cm/sec LA cm/sec RVSP 24 mmHg LVOT 105 cm/sec AOP1/2T m/s Asc. Ao 134 cm/sec RVOT 78 cm/sec RA cm/sec PA 80 cm/sec AV Gradient Peak 7.23 mmHg AV Mean 3.90 mmHg AV Area 2.0 cm MV Gradient Peak 5.52 mmHg MV Mean 1.99 mmHg MV Area cm COMMENTS: Knocker Off: Brigitte BRAY Price Analyst: 2 Dr. Galloway TAPE# PACSD DATE OF SERVICE: 10/09/2017 FINDINGS: 1. Left ventricular chamber size is within normal limits. Left ventricular systolic function is normal. Overall ejection fraction estimated at 60%. 2. Left atrium, right atrium, and right ventricular chamber sizes are within normal limits. 3. Valvular structures have normal structure and motion. 4. Doppler interrogation reveals mild tricuspid regurgitation, no other valvular insufficiency or stenosis. Pulmonary systolic pressure is normal, ECHOCARDIOGRAM REPORT [id number] FERNIE SO estimated at 24 mmHg. 5. No evidence of pericardial effusion or left ventricular thrombus. TRANSINT:[id number] Voice Confirmation ID: [id number] DOCUMENT ID: [id number] BECKY NICHOLS MD at 1414 CC: [id number] DICTATION DATE: 10/10/171105 ELECTRICAL EQUIPMENT TECHNICIAN: 10/10/17 1153 ADM IN [facility] [address] [place] [address]
--- NOTE | 2017-10-10 14:28 | NUR ---
IV AND TELEMETRY DCD. DC PLANS GIVEN. UNDERSTANDING VOICED. ESCORTED TO CAR BY SENIOR FINANCIAL CONSULTANT.
--- NOTE | 2017-10-10 15:09 | NUR ---
Patient Name: FERNIE SO Admission Status: ER Accout number: [id number] Admission Date: 10-08-2017 : 1955 Admission Diagnosis:PNEUMONIA, UNSPECIFIED ORGANISM Attending: DONALD CASTANEDA Current LOS: 2 Anticipated DC Date: 10-10-2017 Planned Disposition: Home Primary Insurance: MEDICARE A & B Discharge Planning Comments: * Is the patient Alert and Oriented? Yes 0 * How many steps to enter\\exit or inside your home? 8 0 * PCP DR. SARAH 0 * Pharmacy [facility] 0 * Preadmission Environment Home with Family 0 * ADLs Independent 0 * Equipment CPAP Nebulizer Oxygen 0 * Other Equipment HOME AND PORTABLE OXYGEN, USES " NEEDED" [facility] - MEDICAL EQUIPMENT PROVIDER PREFERENCE 0 * List name and contact numbers for known caregivers / representatives who currently or will assist patient after discharge: KARAN VALENZUELA, SPOUSE, 0 * Community resources currently utilized None 0 * Please name any agencies selected above. NONE 0 * Additional services required to return to the preadmission environment? No 0 * Can the patient safely return to the preadmission environment? Yes 0 * Has this patient been hospitalized within the prior 30 days at any hospital? No 0 CM MET WITH PT IN ROOM TO DISCUSS DISCHARGE PLANNING AND NEEDS. PT REPORTS LIVING AT HOME INDEPENDENTLY WITH SPOUSE. PT HAS CPAP, NEBULIZER AND OXYGEN - HOME AND PORTABLE (USES NEEDED) FROM [facility] [place]. PT HAS NO OUTSIDE SERVICES ASSISTING IN THE HOME. CM DISCUSSED AVAILABILITY OF HOME HEALTH, REHAB SERVICES AND MEDICAL EQUIPMENT. PT DENIES DISCHARGE NEEDS, REPORTS HIS IS HERE TO PICK HIM UP FOR DISCHARGE HOME TODAY. IMPORTANT MESSAGE FROM MEDICARE PROVIDED AND EXPLAINED. FOREIGN LANGUAGE PROFESSOR NURSE NOTIFIED. Acid Regenerator: Toro Monique
== END 2017-10-10 14:28 | disposition home or self-care (01) | DRG 291 ==
LOC: D.ER 10:39 → D.M2 19:23 → D.SDCHOLD 10-09 13:53 → D.M2 10-09 13:54
PROVIDERS: Emergency Medicine; ADMIT Emergency Medicine
DX: I13.2 Hypertensive heart and chronic kidney disease with heart failure and with stage 5 chronic kidney disease, or end stage renal disease (principal); J18.9 Pneumonia, unspecified organism; N18.6 End stage renal disease; I50.9 Heart failure, unspecified; E11.22 Type 2 diabetes mellitus with diabetic chronic kidney disease; E11.65 Type 2 diabetes mellitus with hyperglycemia; E11.40 Type 2 diabetes mellitus with diabetic neuropathy, unspecified; I25.10 Atherosclerotic heart disease of native coronary artery without angina pectoris; B18.2 Chronic viral hepatitis C; Z72.0 Tobacco use

== ENCOUNTER 2018-01-06 13:30 | Inpatient (IN) | payer BC, MEDICARE | END 2018-01-09 16:53 | disposition home or self-care (01) | DRG 392 | LOC: D.ER 13:30 → D.SDCHOLD 18:54 → D.M2 19:09 | DX: K57.92 Diverticulitis of intestine, part unspecified, without perforation or abscess without bleeding (principal); I13.0 Hypertensive heart and chronic kidney disease with heart failure and stage 1 through stage 4 chronic kidney disease, or unspecified chronic kidney disease; N17.9 Acute kidney failure, unspecified; E11.22 Type 2 diabetes mellitus with diabetic chronic kidney disease; E11.65 Type 2 diabetes mellitus with hyperglycemia; N18.3 Chronic kidney disease, stage 3 (moderate); I50.9 Heart failure, unspecified; E87.5 Hyperkalemia; B19.20 Unspecified viral hepatitis C without hepatic coma ==

== ENCOUNTER 2019-06-03 12:42 | Emergency (ER) | payer BC, MEDICARE ==
[~2019-06-03] VITALS: Ht 162.6 cm; Wt 74.1 kg
[~2019-06-03 12:42] MED LIST changes: +FLAGYL500 MG PO; +FLOMAX0.4 MG PO; +LISINOPRIL10 MG PO; +MAVYRET PO
[2019-06-03 12:55] VITALS: BP 178/96; Ht 162.6 cm; Wt 74.1 kg
[2019-06-03] MEDS ORDERED: HYDROCHLOROTH12.5 M1 PO (12:59)
[2019-06-03 13:37] LABS: BASOPHILS 0.2 % (0-2); EOSINOPHILS 4.2 % (0-7); HEMATOCRIT 40.9 % (42.0-54.0); HEMOGLOBIN 13.4 g/dL (13.5-17.5); IMMATURE GRANULOCYTES 0.2 % (0-5); LYMPHOCYTES 19.8 % (15-50); MCH 28.9 pg (26.0-34.0); MCHC 32.8 g/dL (31.0-37.0); MCV 88.3 fL (80.0-100.0); MEAN PLATELET VOLUME 11.6 fL (7.4-10.4); MONOCYTES 7.7 % (2-11); NEUTROPHILS 67.9 % (40-80); PLATELET COUNT 176 10x3/uL (130-400); RBC 4.63 10x6/uL (4.20-6.10); RDW 13.6 % (11.5-14.5); WBC 5.3 10x3/uL (4.8-10.8)
[2019-06-03 13:50] LABS: ALBUMIN 3.3 g/dL (3.4-5.0); ALKALINE PHOSPHATASE 102 U/L (46-116); ALT (SGPT) 21 U/L (10-68); BILIRUBIN - TOTAL 0.31 mg/dL (0.2-1.3); CALC OSMOLALITY 286 mosm/kg (275-300); CALCIUM 8.6 mg/dL (8.5-10.1); CARBON DIOXIDE 22.2 mmol/L (21.0-32.0); CHLORIDE - SERUM 109 mmol/L (98-107); CREATININE - SERUM 3.1 mg/dL (0.6-1.3); GLUCOSE 83 mg/dL (74-106); POTASSIUM - SERUM 5.1 mmol/L (3.5-5.1); PROTEIN - SERUM 7.1 g/dL (6.4-8.2); SODIUM 140 mmol/L (136-145); UREA NITROGEN 38 mg/dL (7-18); eGFR NON AFRICAN AMERICAN 22 mL/min (90-120)
[2019-06-03 13:58] LABS: APTT 37.2 SECONDS (22.8-39.4); INR 1.1 (0.85-1.17); PROTIME 13.7 SECONDS (11.6-15.0)
[2019-06-03 14:02] LABS: CKMB 2.7 U/L (0.0-3.6); CREATINE KINASE 191 UL (21-232); MAGNESIUM - SERUM 1.6 mg/dL (1.8-2.4); TROPONIN-I 0.038 ng/mL (0.000-0.060)
== END 2019-06-03 16:05 | disposition left against medical advice (07) ==
LOC: D.ER 12:42
PROVIDERS: Family Medicine
DX: R07.9 Chest pain, unspecified (principal)

== ENCOUNTER 2020-01-13 07:27 | Inpatient (IN) | payer BC, MEDICARE ==
[~2020-01-13] VITALS: Ht 162.6 cm; Wt 77.3 kg
[~2020-01-13 07:27] MED LIST changes: +HYDROCHLOROTH12.5 M1 PO
[2020-01-13 08:05] LABS: CALC OSMOLALITY 297 mosm/kg (275-300); CALCIUM 8.5 mg/dL (8.5-10.1); CARBON DIOXIDE 20.1 mmol/L (21.0-32.0); CHLORIDE - SERUM 112 mmol/L (98-107); CREATININE - SERUM 2.9 mg/dL (0.6-1.3); GLUCOSE 105 mg/dL (74-106); POTASSIUM - SERUM 5.4 mmol/L (3.5-5.1); SODIUM 144 mmol/L (136-145); UREA NITROGEN 43 mg/dL (7-18); eGFR NON AFRICAN AMERICAN 23 mL/min (90-120)
[2020-01-13 08:20] LABS: INR 1.06 (0.85-1.17); PROTIME 13.7 SECONDS (11.6-15.0)
[2020-01-13 08:22] LABS: ALBUMIN 2.8 g/dL (3.4-5.0); ALKALINE PHOSPHATASE 76 U/L (30-120); ALT (SGPT) 15 U/L (10-68); BILIRUBIN - TOTAL 0.34 mg/dL (0.2-1.3); CKMB 3.1 U/L (0.0-3.6); CREATINE KINASE 159 UL (21-232); PRO BNP 7151 pg/mL (0-125); PROTEIN - SERUM 6.6 g/dL (6.4-8.2); TROPONIN-I 0.018 ng/mL (0.000-0.060)
[2020-01-13 08:35] LABS: BASOPHILS 0.2 % (0-2); EOSINOPHILS 3.3 % (0-7); HEMATOCRIT 35.1 % (42.0-54.0); HEMOGLOBIN 10.8 g/dL (13.5-17.5); IMMATURE GRANULOCYTES 0.2 % (0-5); LYMPHOCYTES 14.3 % (15-50); MCH 27.6 pg (26.0-34.0); MCHC 30.8 g/dL (31.0-37.0); MCV 89.5 fL (80.0-100.0); MEAN PLATELET VOLUME 11.7 fL (7.4-10.4); MONOCYTES 8.5 % (2-11); NEUTROPHILS 73.5 % (40-80); PLATELET COUNT 188 10x3/uL (130-400); RBC 3.92 10x6/uL (4.20-6.10); RDW 14.7 % (11.5-14.5); WBC 5.2 10x3/uL (4.8-10.8)
[2020-01-13 08:50] LABS: APPEARANCE HAZY (CLEAR); BILIRUBIN NEGATIVE (NEGATIVE); COLOR YELLOW (YELLOW); GLUCOSE NEGATIVE (NEGATIVE); KETONE NEGATIVE (NEGATIVE); NITRITE NEGATIVE (NEGATIVE); PROTEIN 3+ mg/dL (NEGATIVE); UROBILINOGEN NORMAL (NORMAL)
[2020-01-13 08:51] LABS: BACTERIA FEW /hpf (NEGATIVE); EPITHELIAL CELLS 0-5 /hpf (0-5); MUCUS <1+ /lpf (NONE SEEN); RED CELLS - URINE OCC /hpf (0-5); WHITE CELLS - URINE RARE /hpf (NEGATIVE)
[2020-01-13 08:52] LABS: AMORPHOUS SEDIMENT >1+ /lpf (NONE SEEN)
--- NOTE | 2020-01-13 09:15 | NUR ---
ROCEPHIN STOPPED AT 0915
[2020-01-13] MEDS ORDERED: PROTONIX40 MG PO (09:31)
[2020-01-13] MEDS ORDERED: TRAZODONE HCL150 MG (09:32)
[2020-01-13] MEDS ORDERED: CELEXA20 MG (09:32)
[2020-01-13] MEDS ORDERED: BUSPIRONE HCL7.5 MG (09:33)
[2020-01-13] MEDS ORDERED: ZYPREXA15 MG (09:33)
--- NOTE | 2020-01-13 09:36 | NUR ---
PT REPORTS GI UPSET WITH TYLENOL. PT GIVEN PROTONIX, ZOFRAN, AND
--- NOTE | 2020-01-13 10:44 | NUR ---
RECEIVED PT FROM ER VIA STRETCHER. PT IS AAO AND UP WITH ASSIST. RR EVEN AND UNLABORED ON 2L 02. AZITHROMAX INFUSING @100ML/HR VIA R.AC PIV. NO S/S OF DISTESS NOTED. QUICKSTART AND HISTORY COMPLETE. PT DENIES ANY NEEDS. NO S/S OF DISTRESS NOTED. WILL CTM.
[2020-01-13 11:36] VITALS: BP 149/70; BMI 27.5
[2020-01-13 12:34] VITALS: BP 149/70
[2020-01-13] MEDS ORDERED: COMBIVENT RESPIM4 GM INH (13:41)
[2020-01-13] MEDS ORDERED: FUROSEMIDE40 MG PO (13:41)
[2020-01-13] MEDS ORDERED: HYDRALAZINE HCL50 MG PO (13:41)
[2020-01-13] MEDS ORDERED: RESTORIL15 MG PO (13:41)
[2020-01-13] MEDS ORDERED: VITAMIN B-12500 MCG PO (13:42)
[2020-01-13] MEDS ORDERED: IPRAT-ALBUT 0.5-3 ML UPD (13:43)
[2020-01-13] MEDS ORDERED: NORVASC5 MG PO (13:44)
[2020-01-13] MEDS ORDERED: FEXOFENADINE H180 MG PO (13:45)
[2020-01-13] MEDS ORDERED: TACROLIMUS ANHYD1 MG PO ×3 (13:45→16:11)
[2020-01-13] MEDS ORDERED: NEURONTIN600 MG PO (13:45)
[2020-01-13] MEDS ORDERED: PEPCID AC20 MG PO (13:46)
[2020-01-13] MEDS ORDERED: VELTASSA8.4 GM PO (13:46)
[2020-01-13] MEDS ORDERED: CELLCEPT500 MG PO ×2 (13:46→13:50)
[2020-01-13] MEDS ORDERED: FLOMAX0.4 MG PO (13:47)
[2020-01-13] MEDS ORDERED: HYDROCODON-ACE1 EA10 PO (13:48)
[2020-01-13] MEDS ORDERED: LANTUS SOLOSTAR SQ (13:50)
[2020-01-13] MEDS ORDERED: PEPTO-BISMOL262 M1 PO (13:50)
[2020-01-13] MEDS ORDERED: MUCINEX600 MG PO (13:51)
[2020-01-13] MEDS ORDERED: SODIUM BICARBO325 MG PO (13:51)
[2020-01-13 16:45] VITALS: BP 108/78
--- NOTE | 2020-01-13 19:49 | NUR ---
PT LYING IN BED ALERT AND ORIENTED x4. NO SIGNS OR SYMPTOMS OF DISTRESS NOTED. RESPIRATIONS EVEN AND UNLABORED. PT WANTS A HAMBURGER. I TOLD HIM THAT THE [facility] WAS CLOSED AND OFFERED A TURKEY SANDWHICH. PT REFUSED. CALL LIGHT WITH IN REACH AND BED IS IN LOWEST POSITION. WILL CONTINUE TO MONITOR
[2020-01-13 20:00] VITALS: BP 131/52
--- NOTE | 2020-01-13 23:28 | NUR ---
PRN IV PAIN MEDICATION GIVEN FOR 9/10 PAIN LEVEL. PT ENCOURAGED TO CALL FOR HELP WHEN GETTING IN AND OUT OF BED. CALL LIGHT WITH IN REACH AND BED IS IN LOWEST POSITON. WILL CONTINUE TO MONITOR.
[2020-01-14] VITALS: BP 132/52
[2020-01-14 04:00] VITALS: BP 109/57
--- NOTE | 2020-01-14 05:20 | NUR ---
PT LYINGIN BED RESTING WITH IEYES CLOSED. EASILY AROUSED. NO COMPLAINTS OF PAIN AT THIS TIME. CALL LIGHT WITH IN REACH . WILL CONTINUE TO MONITOR.
[2020-01-14 06:07] LABS: BASOPHILS 0.1 % (0-2); EOSINOPHILS 2.4 % (0-7); HEMATOCRIT 34.8 % (42.0-54.0); HEMOGLOBIN 10.3 g/dL (13.5-17.5); IMMATURE GRANULOCYTES 0.4 % (0-5); LYMPHOCYTES 10.4 % (15-50); MCH 27.2 pg (26.0-34.0); MCHC 29.6 g/dL (31.0-37.0); MEAN PLATELET VOLUME 10.6 fL (7.4-10.4); MONOCYTES 6.4 % (2-11); NEUTROPHILS 80.3 % (40-80); PLATELET COUNT 194 10x3/uL (130-400); RBC 3.78 10x6/uL (4.20-6.10); RDW 14.9 % (11.5-14.5)
[2020-01-14 06:15] LABS: MCV 92.1 fL (80.0-100.0)
[2020-01-14 06:28] LABS: ALBUMIN 2.7 g/dL (3.4-5.0); ANION GAP 14.3 mmol/L (8-16); BILIRUBIN - TOTAL 0.27 mg/dL (0.2-1.3); CALCIUM 7.8 mg/dL (8.5-10.1); CARBON DIOXIDE 22.5 mmol/L (21.0-32.0); CREATININE - SERUM 3.4 mg/dL (0.6-1.3); POTASSIUM - SERUM 5.8 mmol/L (3.5-5.1); PROTEIN - SERUM 6.5 g/dL (6.4-8.2)
--- NOTE | 2020-01-14 07:10 | NUR ---
REPORT RECEIVED FROM RAISIN SEPARATOR OPERATOR ANDPATIENT CARE ASSUMED. PATIENT LAYING IN BED ON BACK WITH EYES CLOSD AND BREATHING EVENLY. WILL CONTINUE WITH PLAN OF CARE. SR UPX 2 BED IN LOW POSITION AND CALL LIGHT IN REACH.
[2020-01-14 08:03] LABS: % SATURATION 15 % (15-55); IRON 33 ug/dl (35-150); TOTAL IRON BIND CAPACITY 212 ug/dl (260-445); UNSAT IRON BIND CAPACITY 179 ug/dl (150-375)
[2020-01-14 10:20] VITALS: BP 128/58
[2020-01-14 13:47] VITALS: Ht 162.6 cm; Wt 77.3 kg
[2020-01-14 13:49] VITALS: BP 151/70
--- NOTE | 2020-01-14 15:21 | NUR ---
PATIENT IS STABLE AND VSS. PATIENT LAYING IN BED ON LT SIDE WITH EYES CLOSED AND BREATHING EVENLY. FAMILY AT BS. WILL CONTINUE TO MONITOR. SR UP X 2 BED IN LOW POSITION AND CALL LIGHT IN REACH.
[2020-01-14 16:26] VITALS: BP 112/48
--- NOTE | 2020-01-14 19:31 | NUR ---
RECEIVED REPORT, WILL ASSUME CARE OF PT, SLEEPING ON R.SIDE, BED IS LOW, SRX2, CALL LIGHT IN REACH. WILL CONTINUE PLAN ODF CARE
[2020-01-14 20:00] VITALS: BP 119/47
[2020-01-15] VITALS: BP 129/59
[2020-01-15 04:00] VITALS: BP 124/61
[2020-01-15 05:44] LABS: BASOPHILS 0 % (0-2); EOSINOPHILS 1.9 % (0-7); HEMATOCRIT 34.6 % (42.0-54.0); HEMOGLOBIN 10.3 g/dL (13.5-17.5); IMMATURE GRANULOCYTES 0.3 % (0-5); LYMPHOCYTES 8.9 % (15-50); MCH 27.5 pg (26.0-34.0); MCHC 29.8 g/dL (31.0-37.0); MCV 92.5 fL (80.0-100.0); MEAN PLATELET VOLUME 11.7 fL (7.4-10.4); MONOCYTES 6.6 % (2-11); NEUTROPHILS 82.3 % (40-80); PLATELET COUNT 152 10x3/uL (130-400); RBC 3.74 10x6/uL (4.20-6.10); RDW 14.8 % (11.5-14.5); WBC 7.8 10x3/uL (4.8-10.8)
[2020-01-15 05:59] LABS: ANION GAP 16.5 mmol/L (8-16); CALCIUM 7.3 mg/dL (8.5-10.1); CARBON DIOXIDE 19.4 mmol/L (21.0-32.0); PHOSPHOROUS 6.1 mg/dL (2.5-4.9); POTASSIUM - SERUM 5.9 mmol/L (3.5-5.1)
[2020-01-15 06:01] LABS: CREATININE - SERUM 4.5 mg/dL (0.6-1.3)
--- NOTE | 2020-01-15 06:50 | NUR ---
I have reviewed this patient and I concur with the Shift Assessment completed by the Licensed Practical Nurse today this shift.
--- NOTE | 2020-01-15 07:59 | NUR ---
REPORT RECEIVED FROM DIGITAL PROJECT MANAGER AND PATIENT CARE ASSUMED. PATIENT LAYING IN BED ON LT SIDE WITH EYES CLOSED AND BREATHING EVENLY. WILL CONTINUE WITH PLAN OF CARE. SR UP X 2 BED IN LOW POSITION AND CALL LIGHT IN REACH.
[2020-01-15 12:00] VITALS: BP 129/49
--- NOTE | 2020-01-15 13:33 | NUR ---
PATIENT IS UNCHANGED. PATIENT SITTING UP IN BED WATCHING TV. AT BS. PATIENT DENIES ANY NEEDS OR PAIN. PATIENT HAS ONLY VOIDED 125 CC. 24 HR URINE WILL BE COMPLETE 1829. WILL CONTINUE TO MONITOR,. SR UP X 2 BED IN LOW POSITION AND CALL LIGHT IN REACH.
--- NOTE | 2020-01-15 16:56 | MORECARE ---
CASE MANAGEMENT DISCHARGE SUMMARY PATIENT: FERNIE SO UNIT: [id number] ADM DATE: 01/13/20 AGE: 64 : 57 SEX: M ROOM/BED: D.2130 AUTHOR: ANNA HAM PHYSICIAN: REFERRING PHYSICIAN: KORIN SANTIAGO DO DATE OF SERVICE: 01/15/20 Discharge Plan Patient Name: FERNIE SO [facility] [facility] 1955 Planned Disposition: Anticipated Discharge Date: Discharge Date: Expected LOS: Initial Reviewer: [email or web address] Initial Review Date: 01/15/2020 Generated: 01/15/20 5:55 pm Comments DCP- Discharge Planning Updated by [id number]: Samaria Sainz on 01/15/20 3:[address] Patient Name: FERNIE SO Admission Status: ER Accout number: [id number] Admission Date: 01-13-2020 : 1955 Admission Diagnosis: Attending: DARCIE Current LOS: 2 Anticipated DC Date: Planned Disposition: Primary Insurance: [employer] [facility] Discharge Planning Comments: CM SPOKE WITH JAZ AT [facility]SFER CENTER [phone], DOCUMENTS FAXED TO [phone]. [facility] WORKING ON PLACEMENT AT [facility]. CM TO FOLLOW AND ASSIST NEEDED. Supervisor Of Communications: Samaria Sainz Appended by Samaria Sainz on 01/15/2020 16:50 RAMPMAN: DR. SPENCE TO DO THE DOC TO ANNA. External Providers External Provider: [facility] Next Contact Date: Service Request Date: Service Type: Resolution: Reviewer: Comments: Patient Name: FERNIE SO Page [phone] at 1656 All edits/amendments must be made on the electronic document DICTATION DATE: 01/15/201654 LIBRARY CLERK TALKING BOOKS: RIVAS 01/15/201654 RPT#: [id number] DC DATE: STATUS: ADM IN [facility] [address] [place] [address] END OF REPORT
[2020-01-15 17:04] VITALS: BP 142/62
[2020-01-15 18:57] LABS: ANION GAP 19.6 mmol/L (8-16); CALCIUM 7.9 mg/dL (8.5-10.1); CARBON DIOXIDE 19.7 mmol/L (21.0-32.0); CREATININE - SERUM 4.4 mg/dL (0.6-1.3); POTASSIUM - SERUM 5.3 mmol/L (3.5-5.1)
[2020-01-15 19:23] LABS: CREATININE - URINE 155.7 mg/dL (30-125); PRO/CRE RATIO URINE 0.8 mg/g; PROTEIN - URINE 120.5 mg/dL (0.0-11.9)
[2020-01-15 20:00] VITALS: BP 147/56
--- NOTE | 2020-01-15 20:04 | NUR ---
DR. SANTIAGO CALLED ASKING LAB VALUES, WAS TOLD TO GIVE 2AMP OF SODIUM BICARB
--- NOTE | 2020-01-15 21:00 | NUR ---
PM MEDS GIVEN, ICE WATER PROVIDED, HELD INSULIN, BS-117, ASKING FOR A SANDWICH, PROVIDED, FAMILY AT BEDSIDE, BED IS LOW, SRX2, CALL LIGHT IN REACH, WILL CONTINUE PLAN OF CARE
[2020-01-16] VITALS: BP 127/51
[2020-01-16 04:00] VITALS: BP 138/72
--- NOTE | 2020-01-16 04:34 | NUR ---
8983 [facility] CALL, WITH DANIELA THOMPSON RN GIVING ROOM [id number], CALL REPORT TO NURSE JAYSON HUERTA RN
--- NOTE | 2020-01-16 04:38 | NUR ---
I have reviewed this patient and I concur with the Shift Assessment completed by the Licensed Practical Nurse today this shift.
--- NOTE | 2020-01-16 05:18 | NUR ---
CALLED [employer], WAS TOLD WILL BE ABOUT 30 MIN
--- NOTE | 2020-01-16 06:40 | NUR ---
PT TRANSFER TO [facility] VIA [employer]
--- NOTE | 2020-01-16 11:44 | MORECARE ---
CASE MANAGEMENT DISCHARGE SUMMARY PATIENT: FERNIE SO UNIT: [id number] ADM DATE: 01/13/20 AGE: 64 : 57 SEX: M ROOM/BED: D.2130 AUTHOR: ANNA HAM PHYSICIAN: REFERRING PHYSICIAN: KORIN SANTIAGO DO DATE OF SERVICE: 01/16/20 Discharge Plan Patient Name: FERNIE SO [facility] : 1955 Planned Disposition: Anticipated Discharge Date: Discharge Date: 01/16/2020 Expected LOS: Initial Reviewer: [email or web address] Initial Review Date: 01/15/2020 Generated: 01/16/20 12:44 pm Comments DCP- Discharge Planning Updated by [email or web address]: Samaria Sainz on 01/15/20 3:[address] Patient Name: FERNIE SO Admission Status: ER Accout number: [id number] Admission Date: 01-13-2020 : 1955 Admission Diagnosis: Attending: DARCIE Current LOS: 2 Anticipated DC Date: Planned Disposition: Primary Insurance: [employer] [facility] Discharge Planning Comments: CM SPOKE WITH JAZ AT [facility] [phone], DOCUMENTS FAXED TO [phone]. TRANSFER CENTER WORKING ON PLACEMENT AT [facility]. CM TO FOLLOW AND ASSIST NEEDED. Truck Assembler: Samaria Sainz Appended by Samaria Sainz on 01/15/2020 16:50 BOTTOMING MACHINE OPERATOR: DR. SPENCE TO DO THE DOC TO DOC. Last DP export: 01/15/20 3:56 p Patient Name: FERNIE SO Page 90091 at 1144 All edits/amendments must be made on the electronic document DICTATION DATE: 01/16/20 1144 KENO TERMINAL OPERATOR: RIVAS 01/16/20 1144 RPT#: [id number] DC DATE:01/16/20 STATUS: DIS IN [facility] [address] [place] [address] END OF REPORT
== END 2020-01-16 06:40 | disposition short-term general hospital (02) | DRG 871 ==
LOC: D.ER 07:27 → D.M2 08:50
PROVIDERS: Family Medicine; Internal Medicine Nephrology; ADMIT Internal Medicine; ATTEND Internal Medicine
DX: A41.9 Sepsis, unspecified organism (principal); J18.9 Pneumonia, unspecified organism; I13.0 Hypertensive heart and chronic kidney disease with heart failure and stage 1 through stage 4 chronic kidney disease, or unspecified chronic kidney disease; N17.9 Acute kidney failure, unspecified; Z94.0 Kidney transplant status; E11.22 Type 2 diabetes mellitus with diabetic chronic kidney disease; N18.9 Chronic kidney disease, unspecified; I50.9 Heart failure, unspecified; B19.20 Unspecified viral hepatitis C without hepatic coma; T45.1X5A Adverse effect of antineoplastic and immunosuppressive drugs, initial encounter

== ENCOUNTER 2020-06-15 15:49 | Inpatient (IN) | payer BC, MEDICARE ==
[~2020-06-15] VITALS: Ht 162.6 cm; Wt 70.1 kg
--- NOTE | ~2020-06-15 | OP ---
PATIENT NAME: FERNIE SO MEDICAL RECORD: [id number] :[birth year] LOCATION:D.M2 D.2104 ADMISSION DATE:06/15/20 SURGEON: AZ LOMELI MD DATE OF OPERATION: 06/26/2020 PREOPERATIVE DIAGNOSES: 1. Kwfau-lf-dqrgyjv kidney failure. 2. Acute diastolic congestive heart failure. 3. Hypertension. 4. Diabetes mellitus. 5. Chronic hepatitis C. 6. Asthma. 7. Obstructive sleep apnea. POSTOPERATIVE DIAGNOSES: 1. Krwxw-nb-ilweklx kidney failure. 2. Acute diastolic congestive heart failure. 3. Hypertension. 4. Diabetes mellitus. 5. Chronic hepatitis C. 6. Asthma. 7. Obstructive sleep apnea. PROCEDURE: 1. Left IJ 23-cm HemoSplit catheter placement. 2. Fluoroscopic interpretation. SURGEON: Az Lomeli MD REPORT OF PROCEDURE: The patient's left chest was prepped and draped in sterile fashion. Using ultrasound guidance, a needle was used to cannulate the left internal jugular vein. A guidewire was then advanced with ease. Fluoro was used to note that the wire was in good position in the venous system. A skin incision was made on the left chest and also on the neck and the catheter was tunneled between this left chest incision and the wire exit site. The multiple dilators were placed over the wires followed by the dilator trocar device. The wires and dilator were removed and the catheter tip was advanced through the trocar. The trocar was then removed. We then inspected the tips of the catheter and they were noted to be sitting in good position at the right atrial superior vena caval junction. The catheter aspirated nonpulsatile dark blood and flushed easily with heparinized saline. This was sutured into place with 3-0 nylons and the skin incisions were closed with subcutaneous 5-0 Monocryl. COMPLICATIONS: None. CONDITION: Stable. ANESTHESIA: General endotracheal. BLOOD LOSS: Minimal. TRANSINT:[id number] Voice Confirmation ID: [id number] DOCUMENT ID: [id number] OPERATIVE REPORT [id number] FERNIE SO AZ LOMELI MD CC: [id number] DICTATION DATE: 06/26/20 142 CHIN STRAP CUTTER: 06/26/20 2259 ADM IN [place] [address] [place] [address]
[~2020-06-15 15:49] MED LIST changes: +BUSPIRONE HCL7.5 MG; +CELEXA20 MG; +FEXOFENADINE H180 MG PO; +FUROSEMIDE40 MG PO; +HYDRALAZINE HCL50 MG PO; +HYDROCODON-ACE1 EA10 PO; +LANTUS SOLOSTAR SQ; +PEPCID AC20 MG PO; +PEPTO-BISMOL262 M1 PO; +SODIUM BICARBO325 MG PO; +TRAZODONE HCL150 MG; +VELTASSA8.4 GM PO; +ZYPREXA15 MG
[2020-06-15 16:30] VITALS: BP 142/62
[2020-06-15 17:08] LABS: BASOPHILS 0.2 % (0-2); EOSINOPHILS 1.1 % (0-7); HEMATOCRIT 32.1 % (42.0-54.0); HEMOGLOBIN 9.8 g/dL (13.5-17.5); IMMATURE GRANULOCYTES 0.6 % (0-5); LYMPHOCYTES 15.2 % (15-50); MCH 27.2 pg (26.0-34.0); MCHC 30.5 g/dL (31.0-37.0); MCV 89.2 fL (80.0-100.0); MEAN PLATELET VOLUME 10.6 fL (7.4-10.4); MONOCYTES 11.5 % (2-11); NEUTROPHILS 71.4 % (40-80); PLATELET COUNT 161 10x3/uL (130-400); RDW 15.8 % (11.5-14.5); WBC 4.7 10x3/uL (4.8-10.8)
[2020-06-15 17:15] VITALS: BP 132/60
[2020-06-15 17:15] LABS: APTT 35.8 SECONDS (22.8-39.4); INR 1.24 (0.85-1.17); PROTIME 15.5 SECONDS (11.6-15.0)
[2020-06-15 17:21] LABS: CALC OSMOLALITY 298 mosm/kg (275-300); CARBON DIOXIDE 19.3 mmol/L (21.0-32.0); CHLORIDE - SERUM 110 mmol/L (98-107); CREATININE - SERUM 4.8 mg/dL (0.6-1.3); GLUCOSE 128 mg/dL (74-106); POTASSIUM - SERUM 4.7 mmol/L (3.5-5.1); SODIUM 143 mmol/L (136-145); UREA NITROGEN 46 mg/dL (7-18); eGFR NON AFRICAN AMERICAN 13 mL/min (90-120)
[2020-06-15 17:38] LABS: ALBUMIN 3.1 g/dL (3.4-5.0); ALKALINE PHOSPHATASE 77 U/L (30-120); ALT (SGPT) 7 U/L (10-68); BILIRUBIN - TOTAL 0.31 mg/dL (0.2-1.3); CKMB 1.7 U/L (0.0-3.6); CREATINE KINASE 100 UL (21-232); PRO BNP 9870 pg/mL (0-125); PROTEIN - SERUM 5.8 g/dL (6.4-8.2); TROPONIN-I 0.032 ng/mL (0.000-0.060)
--- NOTE | 2020-06-15 18:25 | NUR ---
ATTEMPTED TO GIVE REPORT. NURSE REFUSED AND STATED TO WAIT UNTIL AFTER ROOM IS CLEANED.
--- NOTE | 2020-06-15 19:15 | NUR ---
PT ARIVES VIA STRETCHER BED LOW AND CALL LIGHT PROVIDED O2 IN PLACE WATER AND FOOD PROVIDED AND INSTRUCTED PT TO TAKE SMALL SIPS AND NOT TO TAKE IN MUCH WATER
[2020-06-15 19:46] VITALS: BP 120/52; BMI 28.5
[2020-06-15] MEDS ORDERED: ASCORBIC ACID500 MG PO (19:56)
[2020-06-15] MEDS ORDERED: TACROLIMUS ANHYD1 MG PO (23:49)
[2020-06-16] VITALS: BP 135/49
[2020-06-16 04:00] VITALS: BP 137/66
[2020-06-16 06:50] LABS: BASOPHILS 0.2 % (0-2); EOSINOPHILS 2.6 % (0-7); HEMATOCRIT 30.8 % (42.0-54.0); HEMOGLOBIN 9.3 g/dL (13.5-17.5); IMMATURE GRANULOCYTES 0.4 % (0-5); LYMPHOCYTES 20.4 % (15-50); MCHC 30.2 g/dL (31.0-37.0); MCV 89.3 fL (80.0-100.0); MEAN PLATELET VOLUME 10.7 fL (7.4-10.4); MONOCYTES 11.6 % (2-11); NEUTROPHILS 64.8 % (40-80); PLATELET COUNT 188 10x3/uL (130-400); RBC 3.45 10x6/uL (4.20-6.10); RDW 15.9 % (11.5-14.5); WBC 4.6 10x3/uL (4.8-10.8)
[2020-06-16 07:35] LABS: ANION GAP 13.9 mmol/L (8-16); BILIRUBIN - TOTAL 0.27 mg/dL (0.2-1.3); CARBON DIOXIDE 21.1 mmol/L (21.0-32.0); MAGNESIUM - SERUM 1.3 mg/dL (1.8-2.4); PROTEIN - SERUM 5.7 g/dL (6.4-8.2); TROPONIN-I 0.027 ng/mL (0.000-0.060)
[2020-06-16 08:00] VITALS: BP 121/54
[2020-06-16 11:00] VITALS: BP 116/55
[2020-06-16 11:22] LABS: % SATURATION 20 % (15-55); IRON 44 ug/dl (35-150); TOTAL IRON BIND CAPACITY 213 ug/dl (260-445); UNSAT IRON BIND CAPACITY 169 ug/dl (150-375)
[2020-06-16 13:12] VITALS: BMI 28.5
--- NOTE | 2020-06-16 15:44 | NUR ---
PT MOVED TO 2129 POST COVID TESTING. ALL BELONGINS GATHERED, INCLUDING BAG OF PT'S MEDS.
--- NOTE | 2020-06-16 18:09 | MORECARE ---
CASE MANAGEMENT DISCHARGE SUMMARY PATIENT: FERNIE SO UNIT: [id number] ADM DATE: 06/15/20 AGE: 64 : 57 SEX: M ROOM/BED: D.2131 AUTHOR: ANNA HAM PHYSICIAN: REFERRING PHYSICIAN: RISA MELISSA MD DATE OF SERVICE: 06/16/20 Discharge Plan Patient Name: FERNIE SO [facility] [facility] 1955 Planned Disposition: Anticipated Discharge Date: Discharge Date: Expected LOS: Initial Reviewer: [email or web address] Initial Review Date: 06/15/2020 Generated: 06/16/20 7:09 pm DCP- Discharge Planning Updated by [email or web address]: Alissa Duke on 06/16/20 5:[address] CM contacted Elizabeth with [facility] Transfer Team, provided verbal information and faxed face sheet to [phone]. Provided contact number for Dr. Coppola, [facility] number for contact. Patient Name: FERNIE SO Page 52739 at 1809 All edits/amendments must be made on the electronic document DICTATION DATE: 06/16/201808 EARLY CHILDHOOD EDUCATION COORDINATOR: RIVAS 06/16/201808 RPT#: [id number] DC DATE: STATUS: ADM IN [facility] [address] [place] [address] END OF REPORT
[2020-06-16 19:08] VITALS: BP 125/66
--- NOTE | 2020-06-16 19:30 | NUR ---
PT IN BED, AAO X 2, RESP EVEN AND UNLABORED, NO DISTRESS NOTED, CL IN REACH, SR UP X 2.
[2020-06-17 00:48] VITALS: BP 112/47
[2020-06-17 04:46] VITALS: BP 97/36
[2020-06-17 05:13] LABS: BASOPHILS 0 % (0-2); EOSINOPHILS 0.5 % (0-7); HEMATOCRIT 31.5 % (42.0-54.0); HEMOGLOBIN 9.5 g/dL (13.5-17.5); LYMPHOCYTES 6.9 % (15-50); MCH 27.2 pg (26.0-34.0); MCHC 30.2 g/dL (31.0-37.0); MCV 90.3 fL (80.0-100.0); MONOCYTES 12.6 % (2-11); PLATELET COUNT 176 10x3/uL (130-400); RBC 3.49 10x6/uL (4.20-6.10)
[2020-06-17 05:17] LABS: WBC 6.1 10x3/uL (4.8-10.8)
[2020-06-17 05:30] LABS: ALBUMIN 3.1 g/dL (3.4-5.0); ANION GAP 16.8 mmol/L (8-16); BILIRUBIN - TOTAL 0.23 mg/dL (0.2-1.3); CALCIUM 8.2 mg/dL (8.5-10.1); CARBON DIOXIDE 19.6 mmol/L (21.0-32.0); MAGNESIUM - SERUM 1.6 mg/dL (1.8-2.4); POTASSIUM - SERUM 5.4 mmol/L (3.5-5.1); PROTEIN - SERUM 6.3 g/dL (6.4-8.2)
--- NOTE | 2020-06-17 07:00 | NUR ---
RESTING IN BED WITH EYES CLOSED. RESPIRATIONS EVEN AND UNLABORED. NO S/S OF ACUTE DISTRESS NOTED. ON 2L O2, NC. IV TO RIGHT HAND, SL. SITE PATENT WITHOUT REDNESS OR SWELLING. ON TELEMETRY SR 84. POSSIBLE TRANSFER TO [facility] WHEN THEY HAVE BED AVAILABLE. CALL LIGHT IN REACH. WILL CONTINUE TO MONITOR.
[2020-06-17 10:24] LABS: BILIRUBIN NEGATIVE (NEGATIVE); GLUCOSE NEGATIVE (NEGATIVE); KETONE NEGATIVE (NEGATIVE); NITRITE NEGATIVE (NEGATIVE); UROBILINOGEN NORMAL (NORMAL)
[2020-06-17 10:34] LABS: CREATININE - URINE 328.3 mg/dL (30-125); PRO/CRE RATIO URINE 0.8 mg/g; PROTEIN - URINE 259.2 mg/dL (0.0-11.9)
[2020-06-17 10:58] VITALS: BP 127/57
--- NOTE | 2020-06-17 11:25 | NUR ---
I have reviewed this patient and I concur with the Shift Assessment completed by the Licensed Practical Nurse today this shift.
[2020-06-17] MEDS ORDERED: HYDRALAZINE HCL25 MG PO (14:44)
[2020-06-17] MEDS ORDERED: FUROSEMIDE10 MG/M1 IV (14:44)
[2020-06-17] MEDS ORDERED: PULMICORT0.5 MG/21 UPD (14:44)
[2020-06-17 15:27] VITALS: BP 103/50
--- NOTE | 2020-06-17 18:42 | NUR ---
RESTING IN BED WITH EYES OPEN. NO C/O PAIN. NO S/S OF ACUTE DISTRESS NOTED. DENIES ANY NEEDS AT THIS TIME. CALL LIGHT IN REACH. WILL CONTINUE TO MONITOR.
--- NOTE | 2020-06-17 19:41 | NUR ---
RECIEVED UP IN BED WITH HOB ELEVATED AND EYES CLOSED. EASILY AROUSES WITH VERBAL STIMULI. ORIENTED X4. LT ARM RESERVED D/T AVF. IV TO RT HAND WITH DOBUTAMINE INFUSING. DENIES AN Y NEEDS AT THIS TIME.
[2020-06-17 20:47] VITALS: BP 146/54
[2020-06-18] VITALS (7 sets, daily range): BP systolic 87–150; BP diastolic 39–60
[2020-06-18 06:08] LABS: BASOPHILS 0 % (0-2); EOSINOPHILS 0.4 % (0-7); HEMATOCRIT 29.5 % (42.0-54.0); HEMOGLOBIN 8.8 g/dL (13.5-17.5); IMMATURE GRANULOCYTES 0.4 % (0-5); LYMPHOCYTES 12.4 % (15-50); MCH 26.7 pg (26.0-34.0); MCHC 29.8 g/dL (31.0-37.0); MCV 89.7 fL (80.0-100.0); NEUTROPHILS 74.8 % (40-80); PLATELET COUNT 180 10x3/uL (130-400); RBC 3.29 10x6/uL (4.20-6.10); WBC 5.2 10x3/uL (4.8-10.8)
[2020-06-18 06:32] LABS: ALBUMIN 3.4 g/dL (3.4-5.0); ANION GAP 12.6 mmol/L (8-16); BILIRUBIN - TOTAL 0.21 mg/dL (0.2-1.3); CALCIUM 8.2 mg/dL (8.5-10.1); CARBON DIOXIDE 22.4 mmol/L (21.0-32.0); CREATININE - SERUM 6.6 mg/dL (0.6-1.3); MAGNESIUM - SERUM 1.6 mg/dL (1.8-2.4); PROTEIN - SERUM 6.5 g/dL (6.4-8.2)
--- NOTE | 2020-06-18 07:20 | NUR ---
RECIEVE REPORT. RESTING IN BED WITH EYES CLOSED. AROUSES EASILY. DENIES ANY NEEDS. CONTINUE PLAN OF CARE AND SAFETY PRECAUTIONS.
--- NOTE | 2020-06-18 16:02 | NUR ---
RESTING IN BED WITH EYES CLOSED. AROUSES TO STIMULI EASILY. SPOUSE AT BEDSIDE. MACHINE READS BP-100/38. MANUALLY CHECK BP-84/42. NOTIFY STEPHANIE BROOKE.
--- NOTE | 2020-06-18 17:18 | NUR ---
LETHARGIC. AROUSES TO STIMULI. RT HAND IV INFILTRATED. DC RT HAND IV TIP INTACT. IV RESITE 22g SUCCESSFUL X3 ATTEMPTS. NS BOLUS CONTINUED ORDERED.
--- NOTE | 2020-06-18 17:36 | NUR ---
SITTING UP IN BED TALKING WITH . BOLUS COMPLETE. MANUAL BP RECHECK 104/38. NOTIFY STEPHANIE BROOKE.
--- NOTE | 2020-06-18 19:22 | NUR ---
RECIEVED UO IN BED WITH EYES CLOSED. AROUSES WITH VERBAL STIMULI. VERY LETHARGIC. REPORTED FROM OFF GOING HE HAS LOW B/P TODAY AND HED B/P MEDICATION. REQUESTING TO GO TO B/R. REQUIRES ASSIST X1. LT ARM RESERVED D/T AVF. O2@ 2 LITERS PER N/C. IV TO RT WRIST SL. DENIES ANY NEEDS AT THIS TIME.
--- NOTE | 2020-06-18 21:57 | NUR ---
ATTEMPTED TO CALL SPOUSE X3 WITH NO ANSWER. B/P IS LOW AT 86/34 ON RT ARM HAS AVF IN LT ARM. NOTIFIED STEPHANIE BERNSTEIN THAT ASKED ME TO CONSULT WITH [facility]. AWAITING CALL BACK.
--- NOTE | 2020-06-18 23:36 | NUR ---
MORE ALERT AND B/P IS UP. STILL AWAITING CALL BACK FROM [facility].
[2020-06-19] VITALS (12 sets, daily range): BP systolic 82–150; BP diastolic 30–92; Ht 162.6 cm; Wt 70.1 kg
[2020-06-19 06:27] LABS: ALBUMIN 3.5 g/dL (3.4-5.0); BILIRUBIN - TOTAL 0.24 mg/dL (0.2-1.3); CALCIUM 8.3 mg/dL (8.5-10.1); CARBON DIOXIDE 19.2 mmol/L (21.0-32.0); CREATININE - SERUM 7.6 mg/dL (0.6-1.3); PROTEIN - SERUM 6.2 g/dL (6.4-8.2)
[2020-06-19 06:29] LABS: ANION GAP 18.1 mmol/L (8-16); POTASSIUM - SERUM 6.3 mmol/L (3.5-5.1)
[2020-06-19 06:58] LABS: BASOPHILS 0.4 % (0-2); EOSINOPHILS 0 % (0-7); HEMATOCRIT 28.9 % (42.0-54.0); HEMOGLOBIN 8.9 g/dL (13.5-17.5); IMMATURE GRANULOCYTES 1.9 % (0-5); MCH 27.3 pg (26.0-34.0); MCHC 30.8 g/dL (31.0-37.0); MCV 88.7 fL (80.0-100.0); MEAN PLATELET VOLUME 10.8 fL (7.4-10.4); MONOCYTES 6.3 % (2-11); NEUTROPHILS 86.4 % (40-80); PLATELET COUNT 169 10x3/uL (130-400); RBC 3.26 10x6/uL (4.20-6.10); RDW 16.2 % (11.5-14.5); WBC 5.3 10x3/uL (4.8-10.8)
--- NOTE | 2020-06-19 07:56 | EC ---
PATIENT:FERNIE SO DATE OF SERVICE: 06/15/20 SEX: M MEDICAL RECORD: [id number] DATE OF : [birth year] LOCATION:D.M2 D.210 AGE OF PATIENT: 64 ADMISSION DATE: 06/15/20 REFERRING PHYSICIAN: INTERPRETING PHYSICIAN: AMITA SHARMA MD ECHOCARDIOGRAM REPORT ECHO CHARGES 4 ECHO COMPLETE Date: 06/16/20 CLINICAL DIAGNOSIS: CHF ECHOCARDIOGRAPHIC MEASUREMENTS (adult normal given) AC root (d.<3.7cm) 3.4 cm LV Septum d (<1.2 cm> 0.9 cm Valve Excursion 1.8 cm LV Septum (systole) 1.5 cm Left Atria (s.<4.0cm> 4.0 cm LVPW d(<1.2cm) 1.3 cm RV (d.<2.3cm) 3.0 cm LVPW (sytole) 1.6 cm LV diastole(<5.6CM) 5.2 cm MV E-F(>70mm/sec) cm LV systole 3.9 cm LVOT Diameter 1.7 cm MV exc.(>10mm) cm Est.ejection fraction (50-75%) % DOPPLER: LVIT cm/sec A 94 cm/sec E 144 cm/sec LA cm/sec RVSP 38.6 mmHg LVOT 124 cm/sec AOP1/2T m/s Asc. Ao 160 cm/sec RVOT 65 cm/sec RA cm/sec PA 89 cm/sec AV Gradient Peak 10.3 mmHg AV Mean 4.7 mmHg AV Area 1.9 cm MV Gradient Peak 10.5 mmHg MV Mean 4.6 mmHg MV Area cm COMMENTS: Cashier Office: [facility] Invasive Physician: 3 Dr. Mejía TAPE# PACS Pericardial Effusion Y DATE OF SERVICE: Adequate 2D, color-flow imaging, spectral Doppler, and M-Mode No LVH. LV internal dimension is normal. Wall motion is normal. EF is greater than or equal to 55%. Aortic valve is tricuspid. No evidence of stenosis by Doppler interrogation. Left atrium is normal. Mitral valve shows no prolapse. Mild MR. Right-sided chambers are grossly normal. Mild TR. TRANSINT:[id number] Voice Confirmation ID: [id number] DOCUMENT ID: [id number] ECHOCARDIOGRAM REPORT [id number] FERNIE SO AMITA SHARMA MD at 0756 CC: [id number] DICTATION DATE: 06/16/20 1158 GROCERY CLERK: 06/16/20 1323 ADM IN [place] [address] [place] [id number]
--- NOTE | 2020-06-19 12:11 | NUR ---
Nutrition Follow-up: Pt sleeping soundly at time of visit this AM and did not wake upon entering room. Chart reviewed. Pt has not been eating well. Noted plans for trialysis catheter placement today with anticipated dialysis. Diet: Cardiac PO intake: 19% avg x last 4 meals Wt: 173# (06/18); 166# (06/15 - stated) Labs noted: Na 135, K+ 6.3, Glu 138, Ca 8.3, Alb 3.5 Meds noted: Albumin, Protonix, Zofran, Humalog, Veltassa, Kayexalate, electrolyte protocol -Change to renal carb consistent diet. -Encourage PO intake and honor food preferences within diet restrictions. -Offer Nepro with meals. -Monitor wt; noted daily wts ordered. -RD following.
--- NOTE | 2020-06-19 13:00 | MORECARE ---
CASE MANAGEMENT DISCHARGE SUMMARY PATIENT: FERNIE SO UNIT: [id number] ADM DATE: 06/15/20 AGE: 64 : 57 SEX: M ROOM/BED: D.2103 AUTHOR: JITENDRA,DOC PHYSICIAN: REFERRING PHYSICIAN: RISA MELISSA MD DATE OF SERVICE: 06/19/20 Discharge Plan Patient Name: FERNIE SO Facility: [facility]:[place] : 1955 Planned Disposition: Anticipated Discharge Date: Discharge Date: Expected LOS: Initial Reviewer: [email or web address] Initial Review Date: 06/15/2020 Generated: 06/19/20 2:00 pm Comments DCP- Discharge Planning Updated by [email or web address]: Alissa Duke on 06/19/20 11:[address] CM met with patient to discuss initial discharge planning. Patient is in agreement to proceed with the assessment. Patient reports that he lives at home independently with his , Holly So, (H) [phone], (C) [phone]. Patient is alert/oriented. Stairs/steps: 5, no rails. PCP: Dr. Bowers. Pharmacy: [facility]. Patient states he has been able to obtain all of his prescribed medications. HHS: Will choose one. DME: Home and portable O2 ([employer]), Bipap X15 years, walker, nebulizer. Patient gives permission to speak with his , Holly. Patient is Independent with all ADL's, medication management INVESTOR, or assists. CM discussed the availability of HH, Rehab, SNF, OP Therapy, DME services. Patient denies the need for additional services at this time and feels safe returning to previous environment. Patient denies hospitalization within the past 30 days. Patient denies the use of community resources INVESTOR. Transportation at time of discharge: , Holly. CM will assist with DC planning PRN. DCP- Discharge Planning Updated by [email or web address]: Alissa Duke on 06/16/20 5:[address] CM contacted Elizabeth with [facility] Transfer Team, provided verbal information and faxed face sheet to [phone]. Provided contact number for Dr. Raleigh Coppola 2 number for contact. Last DP export: 06/16/20 5:09 p Patient Name: FERNIE SO Page [phone] at 1300 All edits/amendments must be made on the electronic document DICTATION DATE: 06/19/20 1300 PALM AND BACK FORGER: RIVAS 06/19/20 1300 RPT#: [id number] DC DATE: STATUS: ADM IN [facility] [address] [place] [address] END OF REPORT
--- NOTE | 2020-06-19 13:07 | MORECARE ---
CASE MANAGEMENT DISCHARGE SUMMARY PATIENT: FERNIE SO UNIT: [id number] ADM DATE: 06/15/20 AGE: 64 : 57 SEX: M ROOM/BED: D.210 AUTHOR: JITENDRA,DOC PHYSICIAN: REFERRING PHYSICIAN: RISA MELISSA MD DATE OF SERVICE: 06/19/20 Discharge Plan Patient Name: FERNIE SO Facility: [facility]:[place] : 1955 Planned Disposition: Anticipated Discharge Date: Discharge Date: Expected LOS: Initial Reviewer: [email or web address] Initial Review Date: 06/15/2020 Generated: 06/19/20 2:06 pm Comments DCP- Discharge Planning Updated by [email or web address]: Alissa Duke on 06/19/20 12:[address] CM met with patient to discuss initial discharge planning. Patient is in agreement to proceed with the assessment. Patient reports that he lives at home independently with his , Holly So, (H) [phone], (C) [phone]. Patient is alert/oriented. Stairs/steps: 5, no rails. PCP: Dr. Bowers. Pharmacy: [facility]. Patient states he has been able to obtain all of his prescribed medications. HHS: Will choose one, no preference. DME: Home and portable O2 ([employer]), Bipap X15 years, walker, nebulizer. Patient gives permission to speak with his , Holly. Patient is Independent with all ADL's, medication management SWIMMING COACH, or assists. CM discussed the availability of HH, Rehab, SNF, OP Therapy, DME services. Patient denies the need for additional services at this time and feels safe returning to previous environment. Patient denies hospitalization within the past 30 days. Patient denies the use of community resources SWIMMING COACH. Transportation at time of discharge: , Holly. CM will assist with DC planning PRN. DCP- Discharge Planning Updated by [email or web address]: Alissa Duke on 06/16/20 5:[address] CM contacted Elizabeth with [facility] Transfer Team, provided verbal information and faxed face sheet to [phone]. Provided contact number for Dr. Coppola, [facility] 2 number for contact. Last DP export: 06/19/20 12:00 p Patient Name: FERNIE SO Page 19115 at 1307 All edits/amendments must be made on the electronic document DICTATION DATE: 06/19/20 1306 VAT OPERATOR: RIVAS 06/19/20 1306 RPT#: [id number] DC DATE: STATUS: ADM IN [facility] [address] [place] [address] END OF REPORT
--- NOTE | 2020-06-19 13:14 | MORECARE ---
CASE MANAGEMENT DISCHARGE SUMMARY PATIENT: FERNIE SO UNIT: [id number] ADM DATE: 06/15/20 AGE: 64 : 57 SEX: M ROOM/BED: D.2104 AUTHOR: JITENDRA,DOC PHYSICIAN: REFERRING PHYSICIAN: RISA MELISSA MD DATE OF SERVICE: 06/19/20 Discharge Plan Patient Name: FERNIE SO Facility: [facility]:[place] : 1955 Planned Disposition: Home with Home Health Anticipated Discharge Date: Discharge Date: Expected LOS: 0 Initial Reviewer: [email or web address] Initial Review Date: 06/15/2020 Generated: 06/19/20 2:14 pm Comments DCP- Discharge Planning Updated by [email or web address]: Alissa Duke on 06/19/20 12:[address] CM met with patient to discuss initial discharge planning. Patient is in agreement to proceed with the assessment. Patient reports that he lives at home independently with his , Holly So, (H) [phone], (C) [phone]. Patient is alert/oriented. Stairs/steps: 5, no rails. PCP: Dr. Bowers. [facility]acy[facility] Patient states he has been able to obtain all of his prescribed medications. HHS: Will choose one, no preference. DME: Home and portable O2 ([employer]), Bipap X15 years, walker, nebulizer. Patient gives permission to speak with his , Holly. 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 CM discussed the availability of HH, Rehab, SNF, OP Therapy, DME services. Patient denies the need for additional services at this time and feels safe returning to previous environment. Patient denies hospitalization within the past 30 days. Patient denies the use of community resources MAILING MACHINE ASSISTANT. Transportation at time of discharge: , Holly. CM will assist with DC planning PRN. DCP- Discharge Planning Updated by [email or web address]: Alissa Duke on 06/16/20 5:[address] CM contacted Elizabeth with [facility] Transfer Team, provided verbal information and faxed face sheet to [phone]. Provided contact number for Dr. Coppola, [facility] 2 number for contact. Last DP export: 06/19/20 12:07 p Patient Name: FERNIE SO Page 19549 at 1314 All edits/amendments must be made on the electronic document DICTATION DATE: 06/19/20 1314 CLINICAL SYSTEMS ANALYST: RIVAS 06/19/20 1314 RPT#: [id number] DC DATE: STATUS: ADM IN [facility] [address] [place] [address] END OF REPORT
--- NOTE | 2020-06-19 15:15 | NUR ---
REC'D VIA BED, WITH PERSONNEL X2, LETHARGIC BUT FOLLOWS COMMANDS, TRANSFERRED TO ICU BED, CONNECTED TO ICU MONITORS, VSS, O2 VIA NC AT 4L, SAT 96%, OTHER VSS, DENIES PAIN, INCONTINENT OF DIARRHEA STOOL, SKINCARE AND LINEN CHANGE COMPLETED, REPOSITIONED UP AND TO BACK WITH HEELS FLOATED, ASSESSMENT COMPLETED PER FLOWSHEET, ACCLAMATED TO ICU, CALL LIGHT IN REACH
--- NOTE | 2020-06-19 15:45 | NUR ---
INCONTINENT OF DIARRHEA STOO, SKINCARE AND PARTIAL LINEN CHANGE COMPLETED
--- NOTE | 2020-06-19 16:00 | NUR ---
CALEED TO ROOM, INCONTINENT OF DIARRHEA, SKINCARE AND LINEN CHANGE COMPLETED
--- NOTE | 2020-06-19 16:10 | NUR ---
CALLED TO ROOM, BEDAN PLACED, LARGE DIARRHEA STOOL TO CODY, SKINCARE AND LINEN CHANGE COMPLETED
--- NOTE | 2020-06-19 16:20 | NUR ---
HD INITIATED, VSS, LETHARGIC, FOLLOWS COMMANDS
--- NOTE | 2020-06-19 18:00 | NUR ---
CONTINUES ON HD, VSS, WILL CONTINUE WITH POC
--- NOTE | 2020-06-19 21:27 | NUR ---
patient refused to take meds. stated "my stomach is not clear" educated on kayexlate and its effects. still refused to take meds at this time.
--- NOTE | 2020-06-19 22:23 | NUR ---
PATIENT STILL REFUSES TO TAKE MEDS. TEMPARATURE IS 96.0 APPLIED WARM BLANKETS AND PUT THERMOSTATE AT HIGHEST TEMP PATIENT SHIVERING AT THIS TIME. WILL CONTINUE TO MONITOR
[2020-06-20] VITALS (21 sets, daily range): BP systolic 89–155; BP diastolic 46–98
[2020-06-20 04:21] LABS: BASOPHILS 0 % (0-2); EOSINOPHILS 0 % (0-7); HEMATOCRIT 28.1 % (42.0-54.0); HEMOGLOBIN 8.4 g/dL (13.5-17.5); IMMATURE GRANULOCYTES 0.3 % (0-5); LYMPHOCYTES 5.9 % (15-50); MCH 26.6 pg (26.0-34.0); MCHC 29.9 g/dL (31.0-37.0); MCV 88.9 fL (80.0-100.0); MEAN PLATELET VOLUME 11.3 fL (7.4-10.4); MONOCYTES 11.2 % (2-11); NEUTROPHILS 82.6 % (40-80); PLATELET COUNT 172 10x3/uL (130-400); RBC 3.16 10x6/uL (4.20-6.10); RDW 15.7 % (11.5-14.5)
[2020-06-20 04:37] LABS: ALBUMIN 3.4 g/dL (3.4-5.0); BILIRUBIN - TOTAL 0.27 mg/dL (0.2-1.3); CALCIUM 7.9 mg/dL (8.5-10.1); CREATININE - SERUM 5.8 mg/dL (0.6-1.3); PROTEIN - SERUM 6.3 g/dL (6.4-8.2)
[2020-06-20 04:39] LABS: ANION GAP 12.9 mmol/L (8-16); CARBON DIOXIDE 26.1 mmol/L (21.0-32.0)
--- NOTE | 2020-06-20 06:01 | NUR ---
PATIENT HAD BM. CLEANED UP
--- NOTE | 2020-06-20 07:46 | NUR ---
DR UP HERE FOR EVAL, AWAITING TRANSPLANT KIDNEY BX, WILL HAVE PATIENT HAVE HD POST PROCEDURE WITHOUT HEPARIN
--- NOTE | 2020-06-20 08:29 | MORECARE ---
CASE MANAGEMENT DISCHARGE SUMMARY PATIENT: FERNIE SO UNIT: [id number] ADM DATE: 06/15/20 AGE: 64 : 57 SEX: M ROOM/BED: D.2310 AUTHOR: JITENDRA,DOC PHYSICIAN: REFERRING PHYSICIAN: RISA MELISSA MD DATE OF SERVICE: 06/20/20 Discharge Plan Patient Name: FERNIE SO Facility: [facility]:[place] : 1955 Planned Disposition: Home with Home Health Anticipated Discharge Date: Discharge Date: Expected LOS: 0 Initial Reviewer: [email or web address] Initial Review Date: 06/15/2020 Generated: 06/20/20 9:29 am Comments DCP- Discharge Planning Updated by [email or web address]: Alissa Duke on 06/19/20 12:[address] CM met with patient to discuss initial discharge planning. Patient is in agreement to proceed with the assessment. Patient reports that he lives at home independently with his , Holly So, (H) [phone], (C) [phone]. Patient is alert/oriented. Stairs/steps: 5, no rails. PCP: Dr. Bowers. Pharmacy: [facility] Patient states he has been able to obtain all of his prescribed medications. HHS: Will choose one, no preference. DME: Home and portable O2 ([employer]), Bipap X15 years, walker, nebulizer. Patient gives permission to speak with his , Holly. 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 CM discussed the availability of HH, Rehab, SNF, OP Therapy, DME services. Patient denies the need for additional services at this time and feels safe returning to previous environment. Patient denies hospitalization within the past 30 days. Patient denies the use of community resources LIME KILN OPERATOR. Transportation at time of discharge: , Holly. CM will assist with DC planning PRN. DCP- Discharge Planning Updated by [email or web address]: Alissa Duke on 06/16/20 5:[address] CM contacted Elizabeth with [facility] Transfer Team, provided verbal information and faxed face sheet to [phone]. Provided contact number for Dr. Coppola, [facility] 2 number for contact. DCPIA - Discharge Planning Initial Assessment Updated by [email or web address]: Yessi Doyle on 06/20/20 8:26 am * Is the patient Alert and Oriented? Yes * How many steps to enter\exit or inside your home? Last DP export: 06/19/20 12:14 p Patient Name: FERNIE SO Page [phone] at 0829 All edits/amendments must be made on the electronic document DICTATION DATE: 06/20/20828 NATIONAL FACILITIES MANAGER: RIVAS 06/20/20828 RPT#: [id number] DC DATE: STATUS: ADM IN [facility] [address] [place] [address] END OF REPORT
--- NOTE | 2020-06-20 08:50 | NUR ---
TO RADIOLOGY FOR HEAD CT AND IR FOR RENAL BX OF TRANSPLANT KIDNEY VIA BED WITH PERSONNEL X2,
--- NOTE | 2020-06-20 09:25 | NUR ---
BACK FROM IR, PER TECHS, PATIENT NOT COOPERATIVE, SBP DOWN IN 80'S, PATIENT TO UNSTABLE AND MAY NEED ANESTHESIA, WILL TRY TO COMPLETE LATER,
--- NOTE | 2020-06-20 09:36 | NUR ---
DR JEANNE TALLEY RE: CT AND BX NOT BEING COMPLETED, STATES TO HOLOD OF FOR NOW AND HE WILL TALK WITH DR UP RE: POC
--- NOTE | 2020-06-20 09:45 | NUR ---
LAB DRAWN FOR SENDOUTS ORDERED BY TERRAZZO GRINDER
[2020-06-20 10:03] LABS: APTT 39.6 SECONDS (22.8-39.4); INR 1.3 (0.85-1.17); PROTIME 16.1 SECONDS (11.6-15.0)
--- NOTE | 2020-06-20 10:18 | NUR ---
ABG DRAWN 7.19, CO2 71.9, BIPAP, INITIATED AT 40% AND 14/6
--- NOTE | 2020-06-20 14:00 | NUR ---
PT ON THE CALL LIGHT, PT WAS REPOSITIONED AT THIS TIME, PT GAVE THUMBS UP WHEN ASKED IF HE NEEDED ANYTHING ELSE
--- NOTE | 2020-06-20 15:00 | NUR ---
PT REASSESSMENT COMPLETED A THIS TIME, PT RESTING ON BIPAP, PT AWAKES TO NAME AND FOLLWS COMMANDS, NO DISTRESS NOTED
[2020-06-20 15:12] LABS: HEPATITIS C ANTIBODY >11.0 S/CO RAT (0.0-0.9)
--- NOTE | 2020-06-20 16:25 | NUR ---
DR. CAVANAUGH PAGED ABOUT ABG RESULTS AT THIS TIME
--- NOTE | 2020-06-20 17:10 | NUR ---
DR. CAVANAUGH HERE AND HE ADJUSTED THE BIPAP SETTINGS, PT STILL LETHARGIC, VSS, WILL MONITOR FOR CHANGES
--- NOTE | 2020-06-20 19:00 | NUR ---
PT ASSESSMENT COMPLETED AT THIS TIME, NO CHANGES NOTED FROM PREVIOUS EXAM, VSS
--- NOTE | 2020-06-20 20:58 | NUR ---
pt more alert and asking where he was and what happened to him, pt was reoriented,pt still very confused, pt was able to drink water without problems, pt given po meds with problems, vss, will monitor for changes
--- NOTE | 2020-06-20 23:00 | NUR ---
PT REASSESSMENT COMPLETED AT THIS TIME, NO CHANGES NOTED FROM PREVIOUS EXAM, VSS
[2020-06-21] VITALS (27 sets, daily range): BP systolic 15–161; BP diastolic 46–88
--- NOTE | 2020-06-21 03:31 | NUR ---
INCONTINENT OF BOWELS. LINEN CHANGED/PARTIAL BATH.
[2020-06-21 06:23] LABS: ALBUMIN 3.1 g/dL (3.4-5.0); ANION GAP 12.7 mmol/L (8-16); BILIRUBIN - TOTAL 0.29 mg/dL (0.2-1.3); CALCIUM 8.3 mg/dL (8.5-10.1); POTASSIUM - SERUM 3.7 mmol/L (3.5-5.1); PROTEIN - SERUM 6.2 g/dL (6.4-8.2)
--- NOTE | 2020-06-21 07:00 | NUR ---
REC'D REPORT AND RESUMED CARE, SLEEPING WITH NO SIGN OF DISTRESS, AROUSABLE TO VERBAL STIMULI, BIPAP IN USE, CONFUSED, ASSESSMENT COMPLETED PER FLOWSHEET, RIGHT ABDOMEN NOTED SMALL GRADUATED TUBING WITH ENTRY SITE TO RIGHT LOWER ABDOMEN, NO OTHER ACUTE CHANGE FROM PREVIOUS
[2020-06-21 07:25] LABS: BASOPHILS 0 % (0-2); EOSINOPHILS 0 % (0-7); HEMATOCRIT 26.5 % (42.0-54.0); HEMOGLOBIN 8.2 g/dL (13.5-17.5); IMMATURE GRANULOCYTES 0.6 % (0-5); LYMPHOCYTES 6.6 % (15-50); MCH 27.7 pg (26.0-34.0); MCHC 30.9 g/dL (31.0-37.0); MCV 89.5 fL (80.0-100.0); MEAN PLATELET VOLUME 11.1 fL (7.4-10.4); MONOCYTES 9.4 % (2-11); NEUTROPHILS 83.4 % (40-80); PLATELET COUNT 178 10x3/uL (130-400); RBC 2.96 10x6/uL (4.20-6.10); RDW 15.9 % (11.5-14.5); WBC 15.6 10x3/uL (4.8-10.8)
--- NOTE | 2020-06-21 08:20 | NUR ---
02 SAT 99%, BIPAP OFF, 4L NC INITIATED
--- NOTE | 2020-06-21 08:40 | NUR ---
CALLED TO ROOM, REPOSITIONED UP AND TO BACK PER REQUEST, WEAKNESS NOTED
--- NOTE | 2020-06-21 11:00 | NUR ---
ASSESSMENT COMPLETE, NO ACUTE CHANGE FROM PREVIOUS ASSESSMENT, VSS, DENIES PAIN, REPOSITIONED TO BACK WITH HEELS FLOATED
[2020-06-21 11:10] LABS: CYTOMEGALOVIRUS AB IGG <0.60 U/mL (0.00-0.59)
--- NOTE | 2020-06-21 12:04 | MORECARE ---
CASE MANAGEMENT DISCHARGE SUMMARY PATIENT: FERNIE SO UNIT: [id number] ADM DATE: 06/15/20 AGE: 64 : 57 SEX: M ROOM/BED: D.2310 AUTHOR: JITENDRA,DOC PHYSICIAN: REFERRING PHYSICIAN: RISA MELISSA MD DATE OF SERVICE: 06/21/20 Discharge Plan Patient Name: FERNIE SO Facility: [facility]:[place] : 1955 Planned Disposition: Home with Home Health Anticipated Discharge Date: Discharge Date: Expected LOS: 0 Initial Reviewer: [email or web address] Initial Review Date: 06/15/2020 Generated: 06/21/20 1:04 pm Comments DCP- Discharge Planning Updated by [email or web address]: Vanessa Moon on 06/21/20 10:[address] CM notified by nurse Nuvia that the physician is still wanting the patient transferred to [facility] for kidney transplant. CM called [facility] to check on status of transfer request that was initiated by Alissa Duke on 06/16. CM spoke with Daniella who informed CM that their records show that [facility] cancelled the transfer request on 06/17/20. CM informed Daniella that the transfer request should not have been cancelled. CM re-initiated transfer request. Gave Dainella Walker's contact number and number to ICU. CM faxed face sheet as requested. Nuvia gave verbal report to transfer center. CM will continue to follow and assist as needed with discharge planning / needs. DCP- Discharge Planning Updated by [email or web address]: Alissa Duke on 06/19/20 12:[address] CM met with patient to discuss initial discharge planning. Patient is in agreement to proceed with the assessment. Patient reports that he lives at home independently with his , Holly So, (H) [phone], (C) [phone]. Patient is alert/oriented. Stairs/steps: 5, no rails. PCP: Dr. Bowers. [facility]acy[facility]. Patient states he has been able to obtain all of his prescribed medications. HHS: Will choose one, no preference. DME: Home and portable O2 ([employer]), Bipap X15 years, walker, nebulizer. Patient gives permission to speak with his , Holly. 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 CM discussed the availability of HH, Rehab, SNF, OP Therapy, DME services. Patient denies the need for additional services at this time and feels safe returning to previous environment. Patient denies hospitalization within the past 30 days. Patient denies the use of community resources ASSISTANT STORE LEADER. Transportation at time of discharge: , Holly. CM will assist with DC planning PRN. DCP- Discharge Planning Updated by [email or web address]: Alissa Duke on 06/16/20 5:[address] CM contacted Elizabeth with [facility] Transfer Team, provided verbal information and faxed face sheet to [phone]. Provided contact number for Dr. Coppola, [facility] 2 number for contact. DCPIA - Discharge Planning Initial Assessment Updated by [email or web address]: Yessi Doyle on 06/20/20 8:26 am * Is the patient Alert and Oriented? Yes * How many steps to enter\exit or inside your home? External Providers External Provider: OTHER-OTHER Next Contact Date: Service Request Date: Service Type: Resolution: Reviewer: Comments: Last DP export: 06/20/20 7:29 a Patient Name: FERNIE SO Page [phone] at 1204 All edits/amendments must be made on the electronic document DICTATION DATE: 06/21/20 1204 STRANNER: RIVAS 06/21/20 1204 RPT#: [id number] DC DATE: STATUS: ADM IN [facility] [address] [place] [address] END OF REPORT
--- NOTE | 2020-06-21 12:19 | NUR ---
Nutrition follow-up: BIPIP in place NPO with sips H2O Labs reviewed Kidney biopsy today Wt: 167# RDN following.
--- NOTE | 2020-06-21 12:19 | NUR ---
PC FROM [facility] [place] AT [facility], AWAITING A DO TO DOC CALL BUT WILL PLACE MR. SO ON THE WAITING LIST FOR ICU BECAUSE THEY ARE AT CAPACITY AT THIS TIME, HE WILL CALL WITH UPDATES TO LET US KNOW AVAILABILITY
--- NOTE | 2020-06-21 12:35 | NUR ---
RIGHT IJ TRIALYSIS DRESSING CHANGE COMPLETED, TOLERATED WITHOUT DIFFICULTY
--- NOTE | 2020-06-21 12:50 | NUR ---
TO IR FOR PENDING RENAL BIOPSY WITH PERSONNEL X1, AWAKE AND ALERT
--- NOTE | 2020-06-21 13:55 | NUR ---
BACK FROM IR AWAKE AND ALERT, VSS, PLACED ON BIPAP, REPORTED CO2 58
--- NOTE | 2020-06-21 14:13 | NUR ---
CALLED TO ROOM, PAIN IN ABDOMEN AND STOMACH, 09/02, HYDDORCODDDONE, GIVEN PER PRN ORDER
--- NOTE | 2020-06-21 16:45 | NUR ---
SPOKE WITH RE[facility], STATED THAT THEY ABSOLUTLY DO NOT WANT PATIENT TO GO TO [facility], DINNER TRAY TO BEDSIDE, CONFIRMED WITH PATIENT
--- NOTE | 2020-06-21 17:45 | NUR ---
HD STARTED BY BAY HD NURSE, VSS, AWAKE AND ALERT
--- NOTE | 2020-06-21 18:03 | NUR ---
TEXT TO DR CHASE RE: CONSULT
--- NOTE | 2020-06-21 18:48 | NUR ---
CARDIAC ENZYMES DRAWN BY LAB
[2020-06-22] VITALS (22 sets, daily range): BP systolic 127–168; BP diastolic 61–92
[2020-06-22 05:05] LABS: BASOPHILS 0 % (0-2); EOSINOPHILS 0.2 % (0-7); HEMATOCRIT 28.2 % (42.0-54.0); HEMOGLOBIN 8.5 g/dL (13.5-17.5); IMMATURE GRANULOCYTES 0.4 % (0-5); MCH 26.7 pg (26.0-34.0); MCHC 30.1 g/dL (31.0-37.0); MCV 88.7 fL (80.0-100.0); MEAN PLATELET VOLUME 10.9 fL (7.4-10.4); MONOCYTES 10.3 % (2-11); NEUTROPHILS 82.1 % (40-80); PLATELET COUNT 195 10x3/uL (130-400); RBC 3.18 10x6/uL (4.20-6.10); RDW 15.4 % (11.5-14.5); WBC 14.4 10x3/uL (4.8-10.8)
[2020-06-22 05:06] LABS: ALBUMIN 2.9 g/dL (3.4-5.0); BILIRUBIN - TOTAL 0.32 mg/dL (0.2-1.3); CALCIUM 8.4 mg/dL (8.5-10.1); CARBON DIOXIDE 27.6 mmol/L (21.0-32.0); CREATININE - SERUM 3.9 mg/dL (0.6-1.3); POTASSIUM - SERUM 3.6 mmol/L (3.5-5.1); PROTEIN - SERUM 6.1 g/dL (6.4-8.2)
--- NOTE | 2020-06-22 12:38 | NUR ---
BLOOD SUGAR 73. JUICE GIVEN TO PT.
--- NOTE | 2020-06-22 12:47 | NUR ---
07 REPORT RECEIVED ASSESSMENT COMPLETE WEARING BPAP AT 40% 02 11/05 02 SAT 100% RESTING WITH EYES CLOSED
--- NOTE | 2020-06-22 13:06 | NUR ---
0900 REMOVED BPAP AND PLACED ON 2L
--- NOTE | 2020-06-22 22:05 | NUR ---
1900 pT. IN BED, AWAKE AND ALERT. NO COMPLAINTS AT THIS TIME. WILL CONTINUE TO MONITOR
--- NOTE | 2020-06-22 22:06 | NUR ---
2100 NO CHANGES NOTED, WILL CONT. TO MONITOR
[2020-06-22 22:07] LABS: CMV QUANT DNA PCR (PLASMA) Negative (Negative)
--- NOTE | 2020-06-22 23:39 | NUR ---
PT. RESTING WITH BIPAP ON.
[2020-06-23] VITALS (16 sets, daily range): BP systolic 128–181; BP diastolic 59–97
--- NOTE | 2020-06-23 01:47 | NUR ---
no changes noted
[2020-06-23 06:11] LABS: TACROLIMUS - LABCORP 1.4 ng/mL (2.0-20.0)
--- NOTE | 2020-06-23 06:40 | NUR ---
NO CHANGES NOTED
--- NOTE | 2020-06-23 06:40 | NUR ---
0300 nO CHANGES NOTED
[2020-06-23 06:45] LABS: BASOPHILS 0.1 % (0-2); EOSINOPHILS 0.6 % (0-7); HEMATOCRIT 26.9 % (42.0-54.0); HEMOGLOBIN 8.3 g/dL (13.5-17.5); IMMATURE GRANULOCYTES 0.3 % (0-5); LYMPHOCYTES 10.8 % (15-50); MCH 27.3 pg (26.0-34.0); MCHC 30.9 g/dL (31.0-37.0); MCV 88.5 fL (80.0-100.0); MEAN PLATELET VOLUME 10.4 fL (7.4-10.4); MONOCYTES 7.2 % (2-11); PLATELET COUNT 202 10x3/uL (130-400); RBC 3.04 10x6/uL (4.20-6.10); RDW 15.1 % (11.5-14.5)
[2020-06-23 07:10] LABS: ALBUMIN 2.7 g/dL (3.4-5.0); ALKALINE PHOSPHATASE 53 U/L (30-120); BILIRUBIN - TOTAL 0.31 mg/dL (0.2-1.3); CALCIUM 8.2 mg/dL (8.5-10.1); CARBON DIOXIDE 26.7 mmol/L (21.0-32.0); CHLORIDE - SERUM 107 mmol/L (98-107); GLUCOSE 92 mg/dL (74-106); POTASSIUM - SERUM 3.5 mmol/L (3.5-5.1); PROTEIN - SERUM 5.8 g/dL (6.4-8.2); SODIUM 141 mmol/L (136-145)
--- NOTE | 2020-06-23 07:10 | NUR ---
AWAKENS INT. PATIENT IS ON BIPAP AT PRESENT. HE IS WITHOUT SIGNS OF DISTRESS.
[2020-06-23 07:32] LABS: CALC OSMOLALITY 289 mosm/kg (275-300); CREATININE - SERUM 5.5 mg/dL (0.6-1.3); UREA NITROGEN 38 mg/dL (7-18); eGFR NON AFRICAN AMERICAN 11 mL/min (90-120)
[2020-06-23 07:33] LABS: ALT (SGPT) < 6 U/L (10-68)
--- NOTE | 2020-06-23 08:25 | NUR ---
ASSESSMENT PER FLOW SHEET. BED CHANGE AND BATH. PATIENT SIT UP IN BED FOR BREAKFAST.CALL LIGHT IN REACH
--- NOTE | 2020-06-23 09:16 | NUR ---
BREAKFAST COMPLETE AND PATIENT REQUEST FOR BEDPAN. LOOSE STOOLS NOTED AGAIN.
--- NOTE | 2020-06-23 09:54 | NUR ---
387 CC PER LADDER SCANNER.
--- NOTE | 2020-06-23 10:01 | NUR ---
BED CHANGE AGAIN, VERY LOOSE WATERY STOOLS BROWN IN COLOR. ALSO BEDPAN FULL.
--- NOTE | 2020-06-23 10:20 | NUR ---
16 FAROESE MONDRAGON CATHETER INSERTED USING CORDWOOD CUTTER HELPER. 400CC OF VERY CONCENTRATED,CLOUDY URINE RETURNED IN MONDRAGON BAG.
--- NOTE | 2020-06-23 10:58 | NUR ---
Nutrition follow-up: Diet: Renal PO Intake 100% of some meals Labs reviewed Wt: 165# Dialysis today RDN following.
--- NOTE | 2020-06-23 11:17 | NUR ---
DR LOMELI ON UNIT, SPOKE WITH HIM ABOUT HEMOSPLIT PLACEMENT. HE SATES IT WOULD BE FRIDAY.
--- NOTE | 2020-06-23 11:48 | NUR ---
ANOTHER LOOSE STOOL. DIALYSIS ALMOST COMPLETE.FSBS 126
--- NOTE | 2020-06-23 13:38 | NUR ---
PAIN MEDS ORDERED PER JAN. PATIENT STATES OAIN 09/02 TO ABD AND BUTTOCKS.
--- NOTE | 2020-06-23 14:32 | NUR ---
BED CHANGE AGAIN LOOSE STOOLS.
--- NOTE | 2020-06-23 15:30 | NUR ---
RESTING WITH BIPAP ON,SATS 97%. HE IS WITHOUT DISTRESS.
--- NOTE | 2020-06-23 17:19 | NUR ---
BED CHANGE AND DINNER TRAY SETUP.
--- NOTE | 2020-06-23 17:25 | NUR ---
REPORT TO BIRDIE ON MED 2.
--- NOTE | 2020-06-24 00:30 | NUR ---
TOOK OVER PATIENT CARE. PATIENT LAYING IN BED IN LOW FOWLERS, WEARING BIPAP, EYES CLOSED BREATHING EVEN AND UNLABORED. RIGHT IJ RUNNING FLUIDS AT THIS TIME. ORTIZ HAS A MONDRAGON CATH WITH CONCENTRATED URINE IN MONDRAGON BAG. NO DISTRESS NOTED. BED IN LOWEST LOCKED POSITION AND CALL LIGHT WITHIN REACH.
[2020-06-24 00:32] VITALS: BP 142/68
[2020-06-24 05:07] LABS: BASOPHILS 0.1 % (0-2); EOSINOPHILS 9.1 % (0-7); HEMATOCRIT 31.9 % (42.0-54.0); HEMOGLOBIN 9.7 g/dL (13.5-17.5); LYMPHOCYTES 5.5 % (15-50); MCH 26.9 pg (26.0-34.0); MCHC 30.4 g/dL (31.0-37.0); MCV 88.4 fL (80.0-100.0); MEAN PLATELET VOLUME 10.9 fL (7.4-10.4); MONOCYTES 17.6 % (2-11); NEUTROPHILS 65.7 % (40-80); PLATELET COUNT 223 10x3/uL (130-400); RBC 3.61 10x6/uL (4.20-6.10); RDW 14.8 % (11.5-14.5)
[2020-06-24 05:15] LABS: WBC 9.6 10x3/uL (4.8-10.8)
[2020-06-24 05:30] LABS: ALBUMIN 2.8 g/dL (3.4-5.0); ANION GAP 12.5 mmol/L (8-16); BILIRUBIN - TOTAL 0.23 mg/dL (0.2-1.3); CALCIUM 8.5 mg/dL (8.5-10.1); CARBON DIOXIDE 25.7 mmol/L (21.0-32.0); CREATININE - SERUM 4.7 mg/dL (0.6-1.3); POTASSIUM - SERUM 3.2 mmol/L (3.5-5.1); PROTEIN - SERUM 6.2 g/dL (6.4-8.2)
[2020-06-24 06:03] VITALS: BP 140/62
[2020-06-24 08:30] VITALS: BP 164/80
--- NOTE | 2020-06-24 09:26 | NUR ---
RESTING IN BED, NO DISTRESS NOTED, O2 IN PLACE, MONDRAGON TO GRAVITY, CONT TO MONITOR SUGARS
[2020-06-24 11:30] VITALS: BP 158/69
[2020-06-24 15:30] VITALS: BP 149/68
--- NOTE | 2020-06-24 19:30 | NUR ---
PT IN BED, AAO X 3, RESP EVEN AND UNLABORED. NO DISTRESS NOTED,CL IN REACH, SR UP X 2.
[2020-06-24 20:00] VITALS: BP 107/62
[2020-06-25] VITALS: BP 171/69
--- NOTE | 2020-06-25 00:21 | NUR ---
I have reviewed this patient and I concur with the Shift Assessment completed by the Licensed Practical Nurse today this shift.
[2020-06-25 04:00] VITALS: BP 149/62
[2020-06-25 04:53] LABS: BASOPHILS 0.1 % (0-2); EOSINOPHILS 3.5 % (0-7); HEMOGLOBIN 8.6 g/dL (13.5-17.5); IMMATURE GRANULOCYTES 3.5 % (0-5); LYMPHOCYTES 17.4 % (15-50); MCH 26.5 pg (26.0-34.0); MCHC 29.7 g/dL (31.0-37.0); MCV 89.2 fL (80.0-100.0); MEAN PLATELET VOLUME 10.6 fL (7.4-10.4); MONOCYTES 11.2 % (2-11); NEUTROPHILS 64.3 % (40-80); PLATELET COUNT 203 10x3/uL (130-400); RBC 3.25 10x6/uL (4.20-6.10); RDW 14.7 % (11.5-14.5); WBC 9.3 10x3/uL (4.8-10.8)
[2020-06-25 05:17] LABS: ALBUMIN 2.8 g/dL (3.4-5.0); ANION GAP 11.5 mmol/L (8-16); BILIRUBIN - TOTAL 0.2 mg/dL (0.2-1.3); CALCIUM 8.2 mg/dL (8.5-10.1); CARBON DIOXIDE 26.9 mmol/L (21.0-32.0); POTASSIUM - SERUM 3.4 mmol/L (3.5-5.1); PROTEIN - SERUM 5.8 g/dL (6.4-8.2)
[2020-06-25 05:21] LABS: CREATININE - SERUM 6.1 mg/dL (0.6-1.3)
--- NOTE | 2020-06-25 07:20 | NUR ---
RECIEVE REPORT. RESTING IN BED WITH EYES CLOSED. NO SIGNS OF DISTRESS. RESPIRATIONS EVEN AND REGULAR. MONDRAGON DRAINING BY GRAVITY. FREE FROM KINKS. CONTINUE PLAN OF CARE AND SAFETY PRECAUTIONS.
[2020-06-25 09:38] VITALS: BP 166/68
[2020-06-25 13:30] VITALS: BP 141/79
[2020-06-25 20:20] VITALS: BP 135/48
[2020-06-26 04:00] VITALS: BP 156/51
[2020-06-26 05:48] LABS: BASOPHILS 0.1 % (0-2); EOSINOPHILS 3.7 % (0-7); HEMATOCRIT 27.6 % (42.0-54.0); HEMOGLOBIN 8.6 g/dL (13.5-17.5); IMMATURE GRANULOCYTES 2.7 % (0-5); LYMPHOCYTES 17.4 % (15-50); MCH 27.7 pg (26.0-34.0); MCHC 31.2 g/dL (31.0-37.0); MCV 88.7 fL (80.0-100.0); MEAN PLATELET VOLUME 10.1 fL (7.4-10.4); MONOCYTES 11.6 % (2-11); NEUTROPHILS 64.5 % (40-80); PLATELET COUNT 210 10x3/uL (130-400); RBC 3.11 10x6/uL (4.20-6.10); RDW 14.6 % (11.5-14.5); WBC 7.3 10x3/uL (4.8-10.8)
[2020-06-26 06:08] LABS: ALBUMIN 2.8 g/dL (3.4-5.0); ANION GAP 13.3 mmol/L (8-16); BILIRUBIN - TOTAL 0.29 mg/dL (0.2-1.3); CALCIUM 8.1 mg/dL (8.5-10.1); CARBON DIOXIDE 26.1 mmol/L (21.0-32.0); CREATININE - SERUM 7.4 mg/dL (0.6-1.3); POTASSIUM - SERUM 3.4 mmol/L (3.5-5.1); PROTEIN - SERUM 5.9 g/dL (6.4-8.2)
--- NOTE | 2020-06-26 07:20 | NUR ---
RECIEVE REPORT. RESTING IN BED WITH EYES CLOSED. SPOUSE AT BEDSIDE. NO SIGNS OF DISTRESS. CONTINUE PLAN OF CARE AND SAFETY PRECAUTIONS.
[2020-06-26 08:00] VITALS: BP 137/53
--- NOTE | 2020-06-26 09:30 | NUR ---
ALERT AND ORIENTED X4. SITTING UP IN BED. CONSENTS FOR PROCEDURE SIGNED ON CHART. TAKEN TO DIALYSIS VIA WHEELCHAIR.
--- NOTE | 2020-06-26 15:00 | NUR ---
RETURN TO ROOM VIA BED FROM PROCEDURE. BP-64, O2-98% WITH 4L NC, BP-125/55. LT CHEST HEMOSPLIT DRESSING INTACT. RT IJ TRIALYSIS LEFT IN PLACE. DENIES ANY NEEDS. CONTINUE PLAN OF CARE AND SAFETY PRECAUTIONS.
--- NOTE | 2020-06-26 16:34 | MORECARE ---
CASE MANAGEMENT DISCHARGE SUMMARY PATIENT: FERNIE SO UNIT: [id number] ADM DATE: 06/15/20 AGE: 64 : 57 SEX: M ROOM/BED: D.210 AUTHOR: JITENDRA,DOC PHYSICIAN: REFERRING PHYSICIAN: RISA MELISSA MD DATE OF SERVICE: 06/26/20 Discharge Plan Patient Name: FERNIE SO Facility: [facility]:[place] : 1955 Planned Disposition: Home with Home Health Anticipated Discharge Date: Discharge Date: Expected LOS: 0 Initial Reviewer: [email or web address] Initial Review Date: 06/15/2020 Generated: 06/26/20 5:33 pm Comments DCP- Discharge Planning Updated by [email or web address]: Vanessa Moon on 06/21/20 10:[address] CM notified by nurse Nuvia that the physician is still wanting the patient transferred to [facility] for kidney transplant. CM called [facility] to check on status of transfer request that was initiated by Alissa Duke on 06/16. CM spoke with Daniella who informed CM that their records show that [facility] cancelled the transfer request on 06/17/20. CM informed Daniella that the transfer request should not have been cancelled. CM re-initiated transfer request. Gave Daniella Walker's contact number and number to ICU. CM faxed face sheet as requested. Nuvia gave verbal report to transfer center. CM will continue to follow and assist as needed with discharge planning / needs. DCP- Discharge Planning Updated by [email or web address]: Alissa Duke on 06/19/20 12:[address] CM met with patient to discuss initial discharge planning. Patient is in agreement to proceed with the assessment. Patient reports that he lives at home independently with his , Holly So, (H) [phone], (C) [phone]. Patient is alert/oriented. Stairs/steps: 5, no rails. PCP: Dr. Bowers. Pharmacy: [facility]. Patient states he has been able to obtain all of his prescribed medications. HHS: Will choose one, no preference. DME: Home and portable O2 ([employer]), Bipap X15 years, walker, nebulizer. Patient gives permission to speak with his , Holly. 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 CM discussed the availability of HH, Rehab, SNF, OP Therapy, DME services. Patient denies the need for additional services at this time and feels safe returning to previous environment. Patient denies hospitalization within the past 30 days. Patient denies the use of community resources HIGH SCHOOL COUNSELOR. Transportation at time of discharge: , Holly. CM will assist with DC planning PRN. DCP- Discharge Planning Updated by [email or web address]: Alissa Duke on 06/16/20 5:[address] CM contacted Elizabeth with [facility] Transfer Team, provided verbal information and faxed face sheet to [phone]. Provided contact number for Dr. Coppola, [facility] 2 number for contact. DCPIA - Discharge Planning Initial Assessment Updated by [email or web address]: Yessi Doyle on 06/20/20 8:26 am * Is the patient Alert and Oriented? Yes * How many steps to enter\exit or inside your home? Last DP export: 06/21/20 11:04 a Patient Name: FERNIE SO Page [phone] at 1634 All edits/amendments must be made on the electronic document DICTATION DATE: 06/26/20 163 COLLATOR HAND: RIVAS 06/26/20 1633 RPT#: [id number] DC DATE: STATUS: ADM IN [facility] [address] [place] [address] END OF REPORT
--- NOTE | 2020-06-26 19:00 | NUR ---
EVENING ROUNDS COMPLETE. PT LAYING IN BED. AAXO4. NO SIGNS OF DISTRESS. PT DENIES ANY PAIN OR NEEDS AT THIS TIME. CL IN REACH, BED IN LOWEST POSITION.
--- NOTE | 2020-06-26 19:00 | NUR ---
REPORT RECIEVED, WILL CONTINUE POC. PATIENT IS AAOX4, LYING IN SEMI-FOWLERS POSITION. NO S/S OF DISTRESS OBSERVED, RR EVEN AND UNLABORED ON 3L O2 VIA NC. PATIENT DENIES NEEDS AT THIS TIME. CL IN REACH, BED LOCKED AND LOWERED. WILL CTM.
[2020-06-26 20:00] VITALS: BP 91/46
[2020-06-27 00:59] VITALS: BP 139/59
[2020-06-27 05:11] VITALS: BP 134/63
[2020-06-27 06:25] LABS: ALBUMIN 2.9 g/dL (3.4-5.0); ANION GAP 7.6 mmol/L (8-16); BILIRUBIN - TOTAL 0.33 mg/dL (0.2-1.3); CALCIUM 8.5 mg/dL (8.5-10.1); CARBON DIOXIDE 30.7 mmol/L (21.0-32.0); PHOSPHOROUS 4.7 mg/dL (2.5-4.9); POTASSIUM - SERUM 3.3 mmol/L (3.5-5.1); PROTEIN - SERUM 6.1 g/dL (6.4-8.2)
[2020-06-27 06:48] LABS: BASOPHILS 0.2 % (0-2); EOSINOPHILS 3.6 % (0-7); HEMATOCRIT 27.7 % (42.0-54.0); HEMOGLOBIN 8.3 g/dL (13.5-17.5); IMMATURE GRANULOCYTES 2.2 % (0-5); LYMPHOCYTES 21.1 % (15-50); MCH 26.9 pg (26.0-34.0); MCV 89.9 fL (80.0-100.0); MEAN PLATELET VOLUME 10.6 fL (7.4-10.4); MONOCYTES 15.1 % (2-11); NEUTROPHILS 57.8 % (40-80); PLATELET COUNT 199 10x3/uL (130-400); RBC 3.08 10x6/uL (4.20-6.10); RDW 14.7 % (11.5-14.5); WBC 6.4 10x3/uL (4.8-10.8)
[2020-06-27 07:01] LABS: CREATININE - SERUM 5.5 mg/dL (0.6-1.3)
--- NOTE | 2020-06-27 07:15 | NUR ---
RECEIVE BEDSIDE SHIFT REPORT. RESTING IN BED WITH EYES CLOSED. NO SIGNS OF DISTRESS. WILL CONTINUE PLAN OF CARE AND SAFETY PRECAUTIONS.
[2020-06-27 08:00] VITALS: BP 132/58
--- NOTE | 2020-06-27 09:34 | MORECARE ---
CASE MANAGEMENT DISCHARGE SUMMARY PATIENT: FERNIE SO UNIT: [id number] ADM DATE: 06/15/20 AGE: 64 : 57 SEX: M ROOM/BED: D.2103 AUTHOR: JITENDRA,DOC PHYSICIAN: REFERRING PHYSICIAN: RISA MELISSA MD DATE OF SERVICE: 06/27/20 Discharge Plan Patient Name: FERNIE SO Facility: [facility]:[place] : 1955 Planned Disposition: Home with Home Health Anticipated Discharge Date: Discharge Date: Expected LOS: 0 Initial Reviewer: [email or web address] Initial Review Date: 06/15/2020 Generated: 06/27/20 10:33 am Comments DCP- Discharge Planning Updated by [id number]: Alissa Duke on 06/27/20 8:[address] 06/26: contacted Savana Simpson regarding HD days/place. Savana is aware of same. DCP- Discharge Planning Updated by [id number]: Vanessa Moon on 06/21/20 10:[address] CM notified by nurse Nuvia that the physician is still wanting the patient transferred to [facility] for kidney transplant. CM called [facility] to check on status of transfer request that was initiated by Alissa Duke on 06/16. CM spoke with Daniella who informed CM that their records show that [facility] cancelled the transfer request on 06/17/20. CM informed Daniella that the transfer request should not have been cancelled. CM re-initiated transfer request. Gave Daniella Walker's contact number and number to ICU. CATHY faxed face sheet as requested. Nuvia gave verbal report to transfer center. CM will continue to follow and assist as needed with discharge planning / needs. DCP- Discharge Planning Updated by [id number]: Alissa Duke on 06/19/20 12:[address] CM met with patient to discuss initial discharge planning. Patient is in agreement to proceed with the assessment. Patient reports that he lives at home independently with his , Holly So, (H) [phone], (C) [phone]. Patient is alert/oriented. Stairs/steps: 5, no rails. PCP: Dr. Bowers. [facility]acy: [facility]. Patient states he has been able to obtain all of his prescribed medications. HHS: Will choose one, no preference. DME: Home and portable O2 ([employer]), Bipap X15 years, walker, nebulizer. Patient gives permission to speak with his , Holly. Patient is Independent with all ADL's, medication management HOISTING ENGINEER, or assists. CM discussed the availability of HH, Rehab, SNF, OP Therapy, DME services. Patient denies the need for additional services at this time and feels safe returning to previous environment. Patient denies hospitalization within the past 30 days. Patient denies the use of community resources HOISTING ENGINEER. Transportation at time of discharge: , Holly. CM will assist with DC planning PRN. DCP- Discharge Planning Updated by [id number]: Alissa Duke on 06/16/20 5:[address] CM contacted Elizabeth with [facility] Transfer Team, provided verbal information and faxed face sheet to [phone]. Provided contact number for Dr. Coppola, [facility] 2 number for contact. DCPIA - Discharge Planning Initial Assessment Updated by [id number]: Yessi Doyle on 06/20/20 8:26 am * Is the patient Alert and Oriented? Yes * How many steps to enter\exit or inside your home? Last DP export: 06/26/20 3:34 pm Patient Name: FERNIE SO Page [phone] at 0934 All edits/amendments must be made on the electronic document DICTATION DATE: 06/27/20932 BEDSPREAD SEAMER: RIVAS 06/27/20932 RPT#: [id number] DC DATE: STATUS: ADM IN [facility] [address] [place] [address] END OF REPORT
--- NOTE | 2020-06-27 09:35 | NUR ---
D/C R FOREARM IV, NOT PATENT. TIP INTACT. DENIES ANY NEEDS AT THIS TIME. CALL LIGHT IN REACH.
[2020-06-27 11:00] VITALS: BP 154/69
--- NOTE | 2020-06-27 12:02 | MORECARE ---
CASE MANAGEMENT DISCHARGE SUMMARY PATIENT: FERNIE SO UNIT: [id number] ADM DATE: 06/15/20 AGE: 64 : 57 SEX: M ROOM/BED: D.2104 AUTHOR: JITENDRA,DOC PHYSICIAN: REFERRING PHYSICIAN: RISA MELISSA MD DATE OF SERVICE: 06/27/20 Discharge Plan Patient Name: FERNIE SO Facility: [facility]:[place] : 1955 Planned Disposition: Home with Home Health Anticipated Discharge Date: Discharge Date: Expected LOS: 0 Initial Reviewer: [email or web address] Initial Review Date: 06/15/2020 Generated: 06/27/20 1:02 pm DCP- Discharge Planning Updated by [email or web address]: Alissa Duke on 06/27/20 8:[address] 06/26: contacted Savana Simpson regarding HD days/place. Savana is aware of same. DCP- Discharge Planning Updated by [id number]: Vanessa Moon on 06/21/20 10:[address] CM notified by nurse Nuvia that the physician is still wanting the patient transferred to [facility] for kidney transplant. CM called [facility] to check on status of transfer request that was initiated by Alissa Duke on 06/16. CM spoke with Daniella who informed CM that their records show that [facility] cancelled the transfer request on 06/17/20. CM informed Daniella that the transfer request should not have been cancelled. CM re-initiated transfer request. Gave Daniella Walker's contact number and number to ICU. CATHY faxed face sheet as requested. Nuvia gave verbal report to transfer center. CM will continue to follow and assist as needed with discharge planning / needs. DCP- Discharge Planning Updated by [id number]: Alissa Duke on 06/19/20 12:[address] CM met with patient to discuss initial discharge planning. Patient is in agreement to proceed with the assessment. Patient reports that he lives at home independently with his , Holly So, (H) [phone], (C) [phone]. Patient is alert/oriented. Stairs/steps: 5, no rails. PCP: Dr. Bowers. Pharmacy: [facility]. Patient states he has been able to obtain all of his prescribed medications. HHS: Will choose one, no preference. DME: Home and portable O2 ([facility]), Bipap X15 years, walker, nebulizer. Patient gives permission to speak with his , Holly. 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 CM discussed the availability of HH, Rehab, SNF, OP Therapy, DME services. Patient denies the need for additional services at this time and feels safe returning to previous environment. Patient denies hospitalization within the past 30 days. Patient denies the use of community resources MIXER OPERATOR. Transportation at time of discharge: , Holly. CM will assist with DC planning PRN. DCP- Discharge Planning Updated by [id number]: Alissa Duke on 06/16/20 5:[address] CM contacted Elizabeth with [facility] Transfer Team, provided verbal information and faxed face sheet to [phone]. Provided contact number for Dr. Coppola, [facility] 2 number for contact. DCPIA - Discharge Planning Initial Assessment Updated by [id number]: Yessi Doyle on 06/20/20 8:26 am * Is the patient Alert and Oriented? Yes * How many steps to enter\exit or inside your home? External Providers External Provider: Yair Next Contact Date: Service Request Date: Service Type: Resolution: Reviewer: Comments: Coverage Notice Reviewer: [id number] - Alissa Duke Notice Issued Date-Time: 06/19/2020 10:00 Notice Type: Patient Choice Letter Notice Delivered To: Family Member Relationship to Patient: Spouse Machine Ii Engraver Name: Holly So Delivery Method: HAND - Hand Delivered Christine Days: Prior Verbal Notification: Recipient Understood Notice: Yes Recipient Signature: Yes Med Rec Note Co-signed by Attending: Coverage Notice Comment: [facility] signed by spouse. Last DP export: 06/27/20 8:34 am Patient Name: FERNIE SO Page [phone] at 1202 All edits/amendments must be made on the electronic document DICTATION DATE: 06/27/20 1202 FITNESS TRAINER: RIVAS 06/27/20 1202 RPT#: [id number] DC DATE: STATUS: ADM IN [facility] [address] [place] [address] END OF REPORT
--- NOTE | 2020-06-27 12:42 | NUR ---
Nutrition Follow-up: Not eating well. Ate ~25% of breakfast this AM. Agreed to Nepro with meals. S/p hemosplit placement yesterday. C/o difficulty swallowing since procedure yesterday. Diet: Renal Wt: 154# (06/27); 165.3# (06/23); 173# (06/18) Last BM: 06/26 Labs noted: K+ 3.3, Glu 160, PO4 4.7, Alb 2.9 Meds noted: Protonix, Zofran, Humalog, Albumin -Change to renal carb consistent diet. -+Nepro with meals. -Monitor wt; noted daily wts ordered. -RD following.
[2020-06-27 15:00] VITALS: BP 157/70
--- NOTE | 2020-06-27 17:04 | MORECARE ---
CASE MANAGEMENT DISCHARGE SUMMARY PATIENT: FERNIE SO UNIT: [id number] ADM DATE: 06/15/20 AGE: 64 : 57 SEX: M ROOM/BED: D.2104 AUTHOR: JITENDRA,DOC PHYSICIAN: REFERRING PHYSICIAN: RISA MELISSA MD DATE OF SERVICE: 06/27/20 Discharge Plan Patient Name: FERNIE SO Facility: [facility]:[place] : 1955 Planned Disposition: Home with Home Health Anticipated Discharge Date: Discharge Date: Expected LOS: 0 Initial Reviewer: [id number] Initial Review Date: 06/15/2020 Generated: 06/27/20 6:03 pm Comments DCP- Discharge Planning Updated by [id number]: Alissa Duke on 06/27/20 3:[address] [facility] set up with Care IV #[phone]. Contacted Gino Reddy, with [facility] for nursing O/A, faxed required information to [phone]. HD days obtained from Savana Simpson: Thursday 06/28 1100, HSD. Thereafter HD will be M/W/FR @1015 HSD. CM contacted Tha Olivo with [facility] for portable tank to DC home with. Patient is aware of HD days/times, verbal and Welcome letter provided. DCP- Discharge Planning Updated by [id number]: Alissa Duke on 06/27/20 8:[address] 06/26: contacted Savana Simpson regarding HD days/place. Savana is aware of same. DCP- Discharge Planning Updated by [id number]: Vanessa Moon on 06/21/20 10:[address] CM notified by nurse Pedersen that the physician is still wanting the patient transferred to [facility] for kidney transplant. CATHY called [facility] to check on status of transfer request that was initiated by Alissa Duke on 06/16. CATHY spoke with Daniella who informed CM that their records show that [facility] cancelled the transfer request on 06/17/20. CATHY informed Daniella that the transfer request should not have been cancelled. CM re-initiated transfer request. Gave Daniella Walker's contact number and number to ICU. CATHY faxed face sheet as requested. Nuvia gave verbal report to transfer center. CM will continue to follow and assist as needed with discharge planning / needs. DCP- Discharge Planning Updated by [id number]: Alissa Duke on 06/19/20 12:[address] CM met with patient to discuss initial discharge planning. Patient is in agreement to proceed with the assessment. Patient reports that he lives at home independently with his , Holly So, (H) [phone], (C) [phone]. Patient is alert/oriented. Stairs/steps: 5, no rails. PCP: Dr. Bowers. Pharmacy: [facility]. Patient states he has been able to obtain all of his prescribed medications. HHS: Will choose one, no preference. DME: Home and portable O2 ([facility]), Bipap X15 years, walker, nebulizer. Patient gives permission to speak with his , Holly. Patient is Independent with all ADL's, medication management SEARCH ANALYST, or assists. CM discussed the availability of HH, Rehab, SNF, OP Therapy, DME services. Patient denies the need for additional services at this time and feels safe returning to previous environment. Patient denies hospitalization within the past 30 days. Patient denies the use of community resources SEARCH ANALYST. Transportation at time of discharge: , Holly. CM will assist with DC planning PRN. DCP- Discharge Planning Updated by [id number]: Alissa Duke on 06/16/20 5:[address] CM contacted Elizabeth with [facility] Transfer Team, provided verbal information and faxed face sheet to [phone]. Provided contact number for Dr. Coppola, [facility] 2 number for contact. DCPIA - Discharge Planning Initial Assessment Updated by [id number]: Yessi Doyle on 06/20/20 8:26 am * Is the patient Alert and Oriented? Yes * How many steps to enter\exit or inside your home? Coverage Notice Reviewer: [id number] - Alissa Duke Notice Issued Date-Time: 06/19/2020 10:00 Notice Type: Patient Choice Letter Notice Delivered To: Family Member Relationship to Patient: Spouse Corporate Counselor Name: Holly So Delivery Method: HAND - Hand Delivered Christine Days: Prior Verbal Notification: Recipient Understood Notice: Yes Recipient Signature: Yes Med Rec Note Co-signed by Attending: Coverage Notice Comment: Patient choice for [facility] signed by spouse. Last DP export: 06/27/20 11:02 am Patient Name: FERNIE SO Page [phone] at 1704 All edits/amendments must be made on the electronic document DICTATION DATE: 06/27/201702 SALES OPERATIONS MANAGER: RIVAS 06/27/201702 RPT#: [id number] DC DATE: STATUS: ADM IN [facility] [address] [place] [address] END OF REPORT
--- NOTE | 2020-06-27 17:10 | NUR ---
NO DC ORDER IN PLACE SINCE 06/17/20. I CALLED June [facility]IS [facility] FOR DISCHARGE ORDER WE HAVE PORTABLE OXYGEN COMING, HOME HEALTH SET UP, ALONG WITH A DIALYSIS CHAIR. STATES THAT SHE WILL PLACE A DC ORDER IN FOR US.
--- NOTE | 2020-06-27 17:55 | MORECARE ---
CASE MANAGEMENT DISCHARGE SUMMARY PATIENT: FERNIE SO UNIT: [id number] ADM DATE: 06/15/20 AGE: 64 : 57 SEX: M ROOM/BED: D.2104 AUTHOR: JITENDRA,DOC PHYSICIAN: REFERRING PHYSICIAN: RISA MELISSA MD DATE OF SERVICE: 06/27/20 Discharge Plan Patient Name: FERNIE SO Facility: [facility]:[place] : 1955 Planned Disposition: Home with Home Health Anticipated Discharge Date: 06/27/20 Discharge Date: Expected LOS: 12 Initial Reviewer: [id number] Initial Review Date: 06/15/2020 Generated: 06/27/20 6:54 pm Comments DCP- Discharge Planning Updated by [id number]: Alissa Duke on 06/27/20 3:[address] [facility] set up with Care IV #[phone]. Contacted Gino Reddy, with [facility] for nursing O/A, faxed required information to [phone]. HD days obtained from Savana Simpson: Thursday 06/28 1100, HSD. Thereafter HD will be M/W/FR @1015 HSD. CM contacted Tha Olivo with [facility] for portable tank to DC home with. Patient is aware of HD days/times, verbal and Welcome letter provided. DCP- Discharge Planning Updated by [id number]: Alissa Duke on 06/27/20 8:[address] 06/26: contacted Savana Simpson regarding HD days/place. Savana is aware of same. DCP- Discharge Planning Updated by [id number]: Vanessa Moon on 06/21/20 10:[address] CM notified by nurse Pedersen that the physician is still wanting the patient transferred to [facility] for kidney transplant. CATHY called [facility] to check on status of transfer request that was initiated by Alissa Duke on 06/16. CATHY spoke with Daniella who informed CM that their records show that [facility] cancelled the transfer request on 06/17/20. CATHY informed Daniella that the transfer request should not have been cancelled. CM re-initiated transfer request. Gave Daniella Walker's contact number and number to ICU. CM faxed face sheet as requested. Nuvia gave verbal report to transfer center. CM will continue to follow and assist as needed with discharge planning / needs. DCP- Discharge Planning Updated by [id number]: Alissa Duke on 06/19/20 12:[address] CM met with patient to discuss initial discharge planning. Patient is in agreement to proceed with the assessment. Patient reports that he lives at home independently with his , Holly So, (H) [phone], (C) [phone]. Patient is alert/oriented. Stairs/steps: 5, no rails. PCP: Dr. Bowers. Pharmacy: [facility]. Patient states he has been able to obtain all of his prescribed medications. HHS: Will choose one, no preference. DME: Home and portable O2 ([facility]), Bipap X15 years, walker, nebulizer. Patient gives permission to speak with his , Holly. Patient is Independent with all ADL's, medication management FACULTY CRIMINAL JUSTICE, or assists. CM discussed the availability of HH, Rehab, SNF, OP Therapy, DME services. Patient denies the need for additional services at this time and feels safe returning to previous environment. Patient denies hospitalization within the past 30 days. Patient denies the use of community resources FACULTY CRIMINAL JUSTICE. Transportation at time of discharge: , Holly. CM will assist with DC planning PRN. DCP- Discharge Planning Updated by [id number]: Alissa Duke on 06/16/20 5:[address] CM contacted Elizabeth with [facility] Transfer Team, provided verbal information and faxed face sheet to [phone]. Provided contact number for Dr. Coppola, [facility] 2 number for contact. DCPIA - Discharge Planning Initial Assessment Updated by [id number]: Yessi Doyle on 06/20/20 8:26 am * Is the patient Alert and Oriented? Yes * How many steps to enter\exit or inside your home? External Providers External Provider: [facility] Next Contact Date: Service Request Date: Service Type: Resolution: Reviewer: Comments: Coverage Notice Reviewer: [id number] - Alissa Duke Notice Issued Date-Time: 06/19/2020 10:00 Notice Type: Patient Choice Letter Notice Delivered To: Family Member Relationship to Patient: Spouse Signal Operator Name: Holly So Delivery Method: HAND - Hand Delivered Christine Days: Prior Verbal Notification: Recipient Understood Notice: Yes Recipient Signature: Yes Med Rec Note Co-signed by Attending: Coverage Notice Comment: Patient choice for [facility] signed by spouse. Reviewer: [id number] Diego Duke Notice Issued Date-Time: 06/27/2020 16:59 Notice Type: IM Discharge Notice Notice Delivered To: Patient Relationship to Patient: Self Signal Operator Name: Fernie So Delivery Method: HAND - Hand Delivered Christine Days: Prior Verbal Notification: Recipient Understood Notice: Yes Recipient Signature: Yes Med Rec Note Co-signed by Attending: Coverage Notice Comment: DC IMM Last DP export: 06/27/20 4:04 pm Patient Name: FERNIE SO Page [phone] at 1755 All edits/amendments must be made on the electronic document DICTATION DATE: 06/27/201753 CHILD NUTRITION ASSISTANT: RIVAS 06/27/201753 RPT#: [id number] DC DATE: STATUS: ADM IN [facility] [address] [place] [address] END OF REPORT
--- NOTE | 2020-06-27 18:00 | NUR ---
D/C R IJ TRIALYSIS, TIP INTACT. PRESSURE HELD FOR 8 MINUTES, BLEEDING STOPPED. DRESSING APPLIED. PATIENT TO REMAIN FLAT FOR 30 MINUTES. D/C MONDRAGON CATHETER, 10ML WITHDRAWN FROM BULB. 200ML OF CONCENTRATED URINE IN BAG.
[2020-06-27] MEDS ORDERED: MUCINEX DM ER1 EAC1 PO (18:33)
--- NOTE | 2020-06-27 19:15 | NUR ---
PATIENED DOWN TO ER ENTRANCE VIA WHEELCHAIR. WAITING. ALERT AND ORIENTED. REMAINS FREE FROM INJURY. DISCHARGE INSTRUCTIONS GIVEN VERBALLY AND WRITTEN.
[2020-06-28 07:16] LABS: BK QUANTITATION PCR Negative (Negative)
--- NOTE | 2020-06-28 09:04 | MORECARE ---
CASE MANAGEMENT DISCHARGE SUMMARY PATIENT: FERNIE SO UNIT: [id number] ADM DATE: 06/15/20 AGE: 64 : 57 SEX: M ROOM/BED: D.2104 AUTHOR: JITENDRA,DOC PHYSICIAN: REFERRING PHYSICIAN: RISA MELISSA MD DATE OF SERVICE: 06/28/20 Discharge Plan Patient Name: FERNIE SO Facility: [facility]:[place] : 1955 Planned Disposition: Home with Home Health Anticipated Discharge Date: 06/27/20 Discharge Date: 06/27/2020 Expected LOS: 12 Initial Reviewer: [email or web address] Initial Review Date: 06/15/2020 Generated: 06/28/20 10:03 am Comments DCP- Discharge Planning Updated by [id number]: Alissa Duke on 06/27/20 3:[address] [facility] set up with Care IV #[phone]. Contacted Gino Reddy with [facility] for nursing O/A, faxed required information to [phone]. HD days obtained from Savana Simpson: Thursday 06/28 1100, HSD. Thereafter HD will be M/W/FR @1015 HSD. CM contacted Tha Olivo with [facility] for portable tank to DC home with. Patient is aware of HD days/times, verbal and Welcome letter provided. DCP- Discharge Planning Updated by [id number]: Alissa Duke on 06/27/20 8:[address] 06/26: contacted Savana Simpson regarding HD days/place. Savana is aware of same. DCP- Discharge Planning Updated by [id number]: Vanessa Moon on 06/21/20 10:[address] CM notified by nurse Pedersen that the physician is still wanting the patient transferred to [facility] for kidney transplant. CATHY called [facility] to check on status of transfer request that was initiated by Alissa Duke on 06/16. CATHY spoke with Daniella who informed CM that their records show that [facility] cancelled the transfer request on 06/17/20. CM informed Daniella that the transfer request should not have been cancelled. CM re-initiated transfer request. Gave Daniella Walker's contact number and number to ICU. CM faxed face sheet as requested. Nuvia gave verbal report to transfer center. CM will continue to follow and assist as needed with discharge planning / needs. DCP- Discharge Planning Updated by [id number]: Alissa Duke on 06/19/20 12:[address] CM met with patient to discuss initial discharge planning. Patient is in agreement to proceed with the assessment. Patient reports that he lives at home independently with his , Holly So, (H) [phone], (C) [phone]. Patient is alert/oriented. Stairs/steps: 5, no rails. PCP: Dr. Bowers. Pharmacy: [facility] Patient states he has been able to obtain all of his prescribed medications. HHS: Will choose one, no preference. DME: Home and portable O2 ([employer]), Bipap X15 years, walker, nebulizer. Patient gives permission to speak with his , Holly. 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 CM discussed the availability of HH, Rehab, SNF, OP Therapy, DME services. Patient denies the need for additional services at this time and feels safe returning to previous environment. Patient denies hospitalization within the past 30 days. Patient denies the use of community resources SUPERVISOR BOATBUILDERS WOOD. Transportation at time of discharge: , Holly. CM will assist with DC planning PRN. DCP- Discharge Planning Updated by [id number]: Alissa Duke on 06/16/20 5:[address] CM contacted Elizabeth with [facility] Transfer Team, provided verbal information and faxed face sheet to [phone]. Provided contact number for Dr. Coppola, [facility] 2 number for contact. DCPIA - Discharge Planning Initial Assessment Updated by [id number]: Yessi Doyle on 06/20/20 8:26 am * Is the patient Alert and Oriented? Yes * How many steps to enter\exit or inside your home? Coverage Notice Reviewer: [id number] - Alissa Duke Notice Issued Date-Time: 06/19/2020 10:00 Notice Type: Patient Choice Letter Notice Delivered To: Family Member Relationship to Patient: Spouse Customs And Immigration Officer Name: Holly So Delivery Method: HAND - Hand Delivered Christine Days: Prior Verbal Notification: Recipient Understood Notice: Yes Recipient Signature: Yes Med Rec Note Co-signed by Attending: Coverage Notice Comment: Patient choice for [facility] signed by spouse. Reviewer: [id number] - Alissa Duke Notice Issued Date-Time: 06/27/2020 16:59 Notice Type: IM Discharge Notice Notice Delivered To: Patient Relationship to Patient: Self Customs And Immigration Officer Name: Fernie So Delivery Method: HAND - Hand Delivered Christine Days: Prior Verbal Notification: Recipient Understood Notice: Yes Recipient Signature: Yes Med Rec Note Co-signed by Attending: Coverage Notice Comment: DC IMM Last DP export: 06/27/20 4:55 pm Patient Name: FERNIE SO Page [phone] at 0904 All edits/amendments must be made on the electronic document DICTATION DATE: 06/28/20902 LONG LINE TEAMSTER: RIVAS 06/28/20902 RPT#: [id number] DC DATE:06/27/20 STATUS: DIS IN [facility] [address] [place] [address] END OF REPORT
== END 2020-06-27 19:17 | disposition home health service (06) | DRG 291 ==
LOC: D.ER 15:49 → D.ICU 17:55 → D.M2 17:55 → D.ICU 06-19 17:14 → D.M2 06-23 17:45
PROVIDERS: Family Medicine; Internal Medicine Nephrology; Specialist; ADMIT Emergency Medicine; ATTEND Emergency Medicine
PROC: 05HM33Z Insertion of Infusion Device into Right Internal Jugular Vein, Percutaneous Approach (ICD-10-PCS; principal; 2020-06-19)
PROC: 0TB03ZX Excision of Right Kidney, Percutaneous Approach, Diagnostic (ICD-10-PCS; 2020-06-21)
DX: I13.0 Hypertensive heart and chronic kidney disease with heart failure and stage 1 through stage 4 chronic kidney disease, or unspecified chronic kidney disease (principal); I50.31 Acute diastolic (congestive) heart failure; N18.4 Chronic kidney disease, stage 4 (severe); Z94.0 Kidney transplant status; F17.203 Nicotine dependence unspecified, with withdrawal; E87.2 Acidosis; N17.9 Acute kidney failure, unspecified; E11.22 Type 2 diabetes mellitus with diabetic chronic kidney disease; E11.65 Type 2 diabetes mellitus with hyperglycemia; B18.2 Chronic viral hepatitis C; J45.909 Unspecified asthma, uncomplicated; D63.1 Anemia in chronic kidney disease; N40.0 Benign prostatic hyperplasia without lower urinary tract symptoms; E87.5 Hyperkalemia; G47.33 Obstructive sleep apnea (adult) (pediatric)

== ENCOUNTER 2020-09-07 08:34 | Day surgery (SDC) | payer BC, MEDICARE ==
[2020-09-06 10:03] LABS: BASOPHILS 0.2 % (0-2); HEMATOCRIT 41.9 % (42.0-54.0); HEMOGLOBIN 13.2 g/dL (13.5-17.5); IMMATURE GRANULOCYTES 0.2 % (0-5); LYMPHOCYTES 29.5 % (15-50); MCH 27.6 pg (26.0-34.0); MCHC 31.5 g/dL (31.0-37.0); MCV 87.7 fL (80.0-100.0); MONOCYTES 6.4 % (2-11); NEUTROPHILS 58.7 % (40-80); PLATELET COUNT 214 10x3/uL (130-400); RBC 4.78 10x6/uL (4.20-6.10); RDW 14.5 % (11.5-14.5)
[2020-09-06 10:08] LABS: ANION GAP 13.3 mmol/L (8-16); CALCIUM 9.1 mg/dL (8.5-10.1); CARBON DIOXIDE 24.1 mmol/L (21.0-32.0); CREATININE - SERUM 5.2 mg/dL (0.6-1.3); POTASSIUM - SERUM 4.4 mmol/L (3.5-5.1)
[2020-09-06 10:33] LABS: APTT 31.1 SECONDS (22.8-39.4); INR 1.06 (0.85-1.17); PROTIME 13.8 SECONDS (11.6-15.0)
[~2020-09-07] VITALS: Ht 162.6 cm; Wt 72.1 kg
--- NOTE | ~2020-09-07 | OP ---
PATIENT NAME: FERNIE SO MEDICAL RECORD: [id number] :57 LOCATION:[facility] ADMISSION DATE: SURGEON: AZ LOMELI MD DATE OF OPERATION: 09/07/2020 PREOPERATIVE DIAGNOSES: 1. End-stage renal disease. 2. Acute diastolic heart failure. 3. Chronic hepatitis C. 4. Diabetes mellitus. 5. Hypertension. 6. Obstructive sleep apnea. POSTOPERATIVE DIAGNOSES: 1. End-stage renal disease. 2. Acute diastolic heart failure 3. Chronic hepatitis C. 4. Diabetes mellitus. 5. Hypertension 6. Obstructive sleep apnea. PROCEDURE: Right upper extremity brachiocephalic AV fistula placement. SURGEON: Az Lomeli MD REPORT OF PROCEDURE: The patient's right upper extremity was prepped and draped in sterile fashion. Using ultrasound guidance, I followed the patient's cephalic vein in the upper arm, down past the antecubital space. I could see that the vein overall was patent. There was a stenotic area near the antecubital fossa. I went ahead and could see the brachial artery and it appeared to be large and adequate for an anastomosis. The patient had a good palpable pulse in the right wrist and the upper arm appeared healthy in general. We made a transverse incision just distal to the antecubital fossa and using electrocautery came through the subcutaneous tissues. We dissected out the patient's brachial artery. This artery was widely open and patent. The vessel was very soft with minimal to no signs of atherosclerotic disease. We then dissected out the patient's cephalic vein as it branched into the antecubital vein. We were able to dissect this vessel free and there were 2 branches coming off of it. These branches were both ligated with 2-0 silks and we transected the vessel. We then opened up the distal aspect of this vessel and after the patient was given 5000 units of heparin, then we placed venous dilators through the vessel up to a size 3. There was some stenosis near the antecubital fossa, but we were able to pass 3 dilators through this and after placing it once we were able to pass this dilator with ease through the vessel. We were able to place this all the way up to the inferior aspect of the shoulder. We then performed an end-to-side anastomosis of the cephalic/antecubital vein to the brachial artery and arteriotomy was made longitudinally and using a 7-0 Prolene we were able to perform our anastomosis. At the conclusion of the anastomosis, there was no sign of any active bleeding and there was a palpable thrill in the upper arm cephalic vein all the way up to the shoulder. The patient continued to have a 2+ radial pulse. We then irrigated out the wound with normal saline. The subcutaneous tissues were reapproximated with interrupted 3-0 Vicryl and the skin was closed with running subcutaneous 5-0 Monocryl. A total of 6 mL of 0.25% Marcaine plain was infused into the surrounding tissues and the wound was dressed appropriately. OPERATIVE REPORT [id number] FERNIE SO COMPLICATIONS: None. CONDITION: Stable. ANESTHESIA: General endotracheal and local. BLOOD LOSS: 50 mL. TRANSINT:[id number] Voice Confirmation ID: [id number] DOCUMENT ID: [id number] AZ LOMELI MD CC: MICAELA ANGEL MD [id number] DICTATION DATE: 09/07/20 1348 PREFORMING MACHINE OPERATOR: 09/07/20 1554 [facility] [address] [place] [address]
[~2020-09-07 08:34] MED LIST changes: +ASCORBIC ACID500 MG PO; +FUROSEMIDE10 MG/M1 IV; +HYDRALAZINE HCL25 MG PO; +LASIX80 MG PO; +MUCINEX DM ER1 EAC1 PO; +PULMICORT0.5 MG/21 UPD; +VITAMIN D1000 UNI1 PO; +[UNRECOGNIZED DRUG - REMARK] PO
[2020-09-07] MEDS ORDERED: VELTASSA8.4 GM PO (09:47)
[2020-09-07 09:51] VITALS: BP 155/78; Ht 162.6 cm; Wt 72.1 kg
[2020-09-07] MEDS ORDERED: HYDROCODON-ACE1 EA10 PO (13:36)
--- NOTE | 2020-09-07 14:00 | NUR ---
ART STATES HE HAS ANXIETY AND WOULD LIKE SOMETHING LIKE VALIUM. STATED WE ONLY GIVE THAT ONLY PREOP.
--- NOTE | 2020-09-07 15:56 | NUR ---
1530 LEFT CHEST HEMOSPLIT WITH CDI DRSG. IV D/C'D WITH CANNULA INTACT, PRESSURE HELD AND DRSG PLACED. DISCHARGE INSTRUCTIONS GIVEN AND PT VERBALIZED AN UNDERSTANDING. OPERATIVE SITE WITH CDI. PT DISCHARGED IN STABLE CONDITION AND W/O COMPLAINT
== END 2020-09-07 15:30 | disposition home or self-care (01) ==
LOC: D.OPS 08:34
PROVIDERS: Anesthesiology; ATTEND Surgery
DX: N18.6 End stage renal disease (principal); I50.31 Acute diastolic (congestive) heart failure; B18.2 Chronic viral hepatitis C; E11.9 Type 2 diabetes mellitus without complications; I10 Essential (primary) hypertension; G47.33 Obstructive sleep apnea (adult) (pediatric); J45.909 Unspecified asthma, uncomplicated

== ENCOUNTER 2021-02-28 19:24 | Observation (INO) | payer SELFPAY ==
[~2021-02-28] VITALS: Ht 162.6 cm; Wt 110.2 kg
[2021-02-28 19:58] LABS: BASOPHILS 0.2 % (0-2); EOSINOPHILS 4.9 % (0-7); HEMATOCRIT 47.6 % (42.0-54.0); HEMOGLOBIN 14.8 g/dL (13.5-17.5); LYMPHOCYTE ABS# 1.24 10x3/uL (1.32-3.57); LYMPHOCYTES 22.6 % (15-50); MCH 29.3 pg (26.0-34.0); MCHC 31.1 g/dL (31.0-37.0); MCV 94.3 fL (80.0-100.0); MEAN PLATELET VOLUME 11.4 fL (7.4-10.4); MONOCYTES 6.2 % (2-11); NEUTROPHIL ABS# 3.62 10x3/uL (1.78-5.38); NEUTROPHILS 66.1 % (40-80); PLATELET COUNT 164 10x3/uL (130-400); RBC 5.05 10x6/uL (4.20-6.10); RDW 14.3 % (11.5-14.5); WBC 5.5 10x3/uL (4.8-10.8)
[2021-02-28 20:08] LABS: CALC OSMOLALITY 294 mosm/kg (275-300); CALCIUM 8.6 mg/dL (8.5-10.1); CARBON DIOXIDE 22.3 mmol/L (21.0-32.0); CHLORIDE - SERUM 104 mmol/L (98-107); POTASSIUM - SERUM 5.9 mmol/L (3.5-5.1); SODIUM 139 mmol/L (136-145); UREA NITROGEN 64 mg/dL (7-18); eGFR NON AFRICAN AMERICAN 4 mL/min (90-120)
[2021-02-28 20:12] LABS: GLUCOSE 79 mg/dL (74-106)
[2021-02-28 20:18] LABS: ALBUMIN 3.5 g/dL (3.4-5.0); ALKALINE PHOSPHATASE 77 U/L (30-120); ALT (SGPT) 10 U/L (10-68); AMYLASE - SERUM 144 U/L (25-115); BILIRUBIN - TOTAL 0.34 mg/dL (0.2-1.3); LIPASE 137 U/L (73-393); PROTEIN - SERUM 7.2 g/dL (6.4-8.2)
[2021-02-28 20:40] LABS: TROPONIN-I < 0.017 ng/mL (0.000-0.060)
--- NOTE | 2021-02-28 21:32 | NUR ---
INFUSION OF CALCIUM COMPLETE AT THIS TIME.
--- NOTE | 2021-02-28 23:14 | NUR ---
PT ARRIVED TO THE UNIT AT 2240 TO ROOM 2140 BY ER NURSE. PT WAS LAYING ON LEFT SIDE INTHE STRETCHER C/O BEING SWEATY. UPON INITIAL ASSESSMENT, PT WAS DIAPHORETIC AND CLAMMY TO THE TOUCH. PT STATED HE COULDN'T MOVE AND THEN CLOSED HIS EYES. BS CHECKED IMMEDIATELY WAS 39. DEXTROSE OVERRIDE IN PYXIS AND GIVEN IV. BS RECHECK IN 5 MIN WAS 179. PT NO LONGER DIAPHORETIC. PT AWAKE AND ORIENTED ASKING STAFF "WHAT HAPPENED". WILL CONTINUE TO MONITOR PATIENT AND BS. PAGED TO BE NOTIFED, AWAITING CALL BACK.
[2021-03-01 01:59] LABS: CREATINE KINASE 164 UL (21-232); MAGNESIUM - SERUM 2.5 mg/dL (1.8-2.4)
[2021-03-01 04:00] VITALS: BP 126/63
[2021-03-01 06:32] LABS: BASOPHILS 0.2 % (0-2); HEMATOCRIT 45.9 % (42.0-54.0); HEMOGLOBIN 14.2 g/dL (13.5-17.5); IMMATURE GRANULOCYTES 0.2 % (0-5); LYMPHOCYTE ABS# 1.23 10x3/uL (1.32-3.57); LYMPHOCYTES 23.2 % (15-50); MCH 29.3 pg (26.0-34.0); MCHC 30.9 g/dL (31.0-37.0); MCV 94.6 fL (80.0-100.0); NEUTROPHIL ABS# 3.48 10x3/uL (1.78-5.38); NEUTROPHILS 65.4 % (40-80); PLATELET COUNT 174 10x3/uL (130-400); RBC 4.85 10x6/uL (4.20-6.10); RDW 14.4 % (11.5-14.5); WBC 5.3 10x3/uL (4.8-10.8)
[2021-03-01 06:54] LABS: ALBUMIN 3.2 g/dL (3.4-5.0); ANION GAP 18.5 mmol/L (8-16); BILIRUBIN - TOTAL 0.34 mg/dL (0.2-1.3); CALCIUM 8.2 mg/dL (8.5-10.1); CARBON DIOXIDE 21.6 mmol/L (21.0-32.0); CREATININE - SERUM 12.8 mg/dL (0.6-1.3); MAGNESIUM - SERUM 2.2 mg/dL (1.8-2.4); POTASSIUM - SERUM 5.1 mmol/L (3.5-5.1); PROTEIN - SERUM 6.8 g/dL (6.4-8.2)
[2021-03-01 07:25] LABS: APTT 34.6 SECONDS (22.8-39.4); INR 1.13 (0.85-1.17); PROTIME 13.4 SECONDS (11.6-15.0)
[2021-03-01 08:00] VITALS: BP 147/70
--- NOTE | 2021-03-01 09:50 | NUR ---
CALLED DIALYSIS AND SPOKE WITH MAYELA ANDRADE RN AND EXPLAINED THAT I WENT TO PATIENTS ROOM AND HE WAS FULLY DRESSED AND WHEN I ASK WHY HE SAID THAT DR UP SAID HE COULD GO HOME AFTER DIALYSIS TODAY, UPON READING THE NOTE IT WAS EXPLAINED TO HIM THE NOTE STATED HE WAS BEING DISCHARGED TOMOROW. HE BECAME QUTE AGGRAVATED AND SAID HE WAS NOT SPENDING ANOTHER NIGHT IN THIS PLACE SO I CALLED AND INFORMED DIALYSIS. HE HAS BEEN AGGRAVATED ALL MORNING ABOUT HAVING TO GO TO DIALYSIS INSTEAD OF GOING HOME.
[2021-03-01 13:37] VITALS: BMI 41.7
--- NOTE | 2021-03-01 14:14 | NUR ---
PATIENT RETURNED FROM DIALYSIS AND WANTED TO GO HOME, I DISCUSSES WITH DR JEFFERS AND HE SSAID THAT THE PATIENT HAD TO STAY AND DIALYSIS TOMORROW AND THEN COULD GO HOME DR UP NOTES STATED AND HE DID NOT STAY ON TREATMENT THE MAKE UP MAN TODAY. I EXPLAINED THIS TO HIM AND HE DEMANDED TO LEAVE AMA. SHELBY LANGSTON APRN WAS ON THE FLOOR AND APPROVED SO PATIENT SIGNED PAPERS AND LEFT. PAGED DANIELA WITH [facility] TO NOTIFY THEM.
--- NOTE | 2021-03-01 14:31 | NUR ---
DANIELA SALINAS [employer] MANAGER WITH [facility] AWARE OF PATIENT LEAVING AMA.
--- NOTE | 2021-03-01 14:50 | MORECARE ---
CASE MANAGEMENT DISCHARGE SUMMARY PATIENT: FERNIE SO UNIT: [id number] ADM DATE: 02/28/21 AGE: 65 : 57 SEX: M ROOM/BED: D.2140 AUTHOR: JITENDRA,DOC PHYSICIAN: REFERRING PHYSICIAN: JEM POLANCO MD DATE OF SERVICE: 03/01/21 Case Management Discharge Planning Summary DCP REVIEW SUMMARY ANTICIPATED D/C DATE: EXPECTED LOS : CASE STATUS: DCP Not started INITIAL REVIEW: 02/28/2021 INITIAL REVIEWER: Yessi Doyle FINAL DISCHARGE DISPOSITION: 07 : Left AMA or Discontinued Care FINAL REVIEWER: Yessi Doyle FINAL REVIEW DATE: 03/01/2021 DCP [employer] Questions & Answers QUESTION: ANSWER : PATIENT: FERNIE SO ENCOUNTER: [id number] MEDICAL RECORD#: [id number] ADMISSION DATE: 02/28/2021 DISCHARGE DATE: 03/01/2021 ATTENDING MD: JEM MCCRAY : AGE: 65 MARITAL STATUS: M DC PLAN ID: [id number] FACILITY: PRINTED ON: 03/01/21 14:50 CT All edits/amendments must be made on the electronic document DICTATION DATE: 03/01/211449 LOG CHIPPER OPERATOR: RIVAS 03/01/21 145 RPT#: [id number] DC DATE:03/01/21 STATUS: DIS IN [address] [place] [address] END OF REPORT
[2021-03-02 14:11] LABS: HEPATITIS C ANTIBODY >11.0 (0.0-0.9)
[2021-03-02 14:43] VITALS: Ht 162.6 cm; Wt 110.2 kg
== END 2021-03-01 14:33 | disposition left against medical advice (07) ==
LOC: D.ER 19:24 → D.M2 22:03 → OBSVTIME 22:05 → D.M2 03-01 14:33
PROVIDERS: Family Medicine; Internal Medicine Nephrology; ADMIT Family Medicine; ATTEND Family Medicine
DX: R10.9 Unspecified abdominal pain (principal); N18.6 End stage renal disease; E87.5 Hyperkalemia; Z99.2 Dependence on renal dialysis; E11.40 Type 2 diabetes mellitus with diabetic neuropathy, unspecified; E11.22 Type 2 diabetes mellitus with diabetic chronic kidney disease; I13.0 Hypertensive heart and chronic kidney disease with heart failure and stage 1 through stage 4 chronic kidney disease, or unspecified chronic kidney disease; I50.9 Heart failure, unspecified; K21.9 Gastro-esophageal reflux disease without esophagitis; Z72.0 Tobacco use